=== PATIENT | female | born 1930 | race Caucasian/White ===

== ENCOUNTER 2016-09-19 17:28 | Emergency (ER) | payer MEDICARE, BC, OTHER ==
[2016-09-19] MEDS ORDERED: LABETALOL HCL 100 MG/20 ML VIAL As Ordered ONE (18:39)
--- NOTE | 2016-09-19 19:17 | REP ---
Clinical: None acute cerebral vascular infarct . Findings: Age-related atrophy and microvascular ischemic changes are appreciated. The ventricles and sulci are symmetric. Franks-white differentiation is maintained. There is no evidence for acute intracranial hemorrhage, mass/mass effect, pathology or infarction. No extra-axial fluid collection. Calvarium is intact. Paranasal sinuses and mastoid air cells are clear. Impression: Age related atrophy and microvascular ischemic changes. No acute intracranial hemorrhage, infarction, or mass/mass effect. Signed by Stan Quintero MD 09/19/2016 07:07 P
--- NOTE | 2016-09-19 19:30 | REP ---
Clinical: Acute hypertensive emergency . Comparison: 08/10/2015 . Technique: PA and lateral. Findings: The mediastinum and cardiac silhouette are normal. The lung whitten demonstrate chronic changes and without acute consolidation, effusion, or pneumothorax. The skeletal structures are intact and normal. Impression: 1. No acute cardiopulmonary process. Signed by Stan Quintero MD 09/19/2016 07:22 P
[2016-09-19 19:50] LABS: BASO % 0.5 % (0.0-1.0); EOS # 0.1 K/mm3 (0.0-0.50); EOS % 1.2 % (0.0-3.0); LARGE UNSTAINED CELL # 0.2 K/mm3 (0.0-0.4); LYMPH % 17.7 % (24.0-44.0); MEAN CORPUSCULAR HEMOGLOBIN 31.5 pg (27.0-33.0); MEAN CORPUSCULAR HGB CONC 32.7 g/dl (32.0-36.5); MEAN CORPUSCULAR VOLUME 96.5 fl (80.0-96.0); MONO # 0.2 K/mm3 (0.0-0.8); MONO % 2.9 % (0.0-5.0); NEUTROPHILS # 4.4 K/mm3 (1.8-7.7); NEUTROPHILS % 74.8 % (36.0-66.0); PLATELET COUNT, AUTOMATED 290 k/mm3 (150-450); RED CELL DISTRIBUTION WIDTH 12.4 % (11.5-14.5); WHITE BLOOD COUNT 5.8 K/mm3 (4.0-10.0)
[2016-09-19 20:14] LABS: ANION GAP 9 MEQ/L (8-16); BLOOD UREA NITROGEN 17 MG/DL (7-18); CALCIUM LEVEL 8.7 MG/DL (8.8-10.2); CARBON DIOXIDE LEVEL 27 MEQ/L (21-32); CHLORIDE LEVEL 106 MEQ/L (98-107); CREATININE FOR GFR 0.76 MG/DL (0.55-1.02); GLOMERULAR FILTRATION RATE > 60.0 (>32); GLUCOSE, FASTING 230 MG/DL (83-110); POTASSIUM SERUM 3.8 MEQ/L (3.5-5.1); SODIUM LEVEL 142 MEQ/L (136-145)
[2016-09-19] MEDS ORDERED: LABETALOL 100 MG TAB As Ordered ONE (20:57)
--- NOTE | 2016-09-19 21:14 | EDDOCDS ---
Physician Documentation [facility] Name: Leilani Trevino Age: 86 yrs Sex: Female : 1930 Arrival Date: 09/19/2016 Time: 17:28 Bed 20 Private MD: Disposition: 09/19 19:22 I have independently interviewed and examined the patient, and I agree with the br1 investigation, diagnosis and treatment plan as documented by the Resident. Disposition: 09/19/16 20:49 Discharged to Home/Self Care. Impression: Essential (primary) hypertension. - Condition is Stable. - Discharge Instructions: Hypertension, Hypertension, [id number]. - Prescriptions for labetalol 100 mg Oral tablet - take 1 tablet by ORAL route 2 times per day; 60 tablet. - Medication Reconciliation, Local Pharmacy Hours form. - Follow up: Private Physician; When: 2 - 3 days; Reason: Continuance of care. - Problem is an acute exacerbation. - Symptoms have improved. Historical: - Allergies: PENICILLINS; - Home Meds: 1. Novolog 100 unit/mL Sub-Q soln 6 units before each meal plus 2 units per 50mg/dl over 100 2. levothyroxine 50 mcg Oral cap 1 cap once daily 3. Tresiba FlexTouch U-200 200 unit/mL (3 mL) subcutaneous inpn 50 units daily 4. magnesium oxide 400 mg Oral tab 800 mg daily 5. cyanocobalamin (vit B-12) miscellaneous 1000 mcg every 2 weeks 6. Citracal + D Slow Release 600 mg calcium- 500 unit oral TbER daily 7. Aleve 220 mg Oral tab 1 tab every 12 hours 8. Sertraline 50 mg daily 9. Mavik 2 mg Oral tab 1 tab once daily 10. Centrum Silver oral tab daily 11. aspirin 81 mg Oral TbEC 1 tab once daily - PMHx: CAD; Diabetes - IDDM: uncontrolled; hyperlipidemia; Hypertension; Anxiety; SVT; onychomycosis; thoracic and lumbosacral neuritis; Hypothyroidism; - PSHx: Hysterectomy; - Social history: Smoking status: Patient states was never smoker of tobacco. No barriers to communication noted, The patient speaks fluent Occitan. - Family history: Not pertinent. - : The pt / caregiver states he / she is not on anticoagulants. Home medication list is obtained from the patient. - Exposure Risk Screening:: None identified. Vital Signs: 17:53 BP 220 / 114 (auto/); sls1 17:54 BP 220 / 114; Pulse 79; Resp 18; Temp 98.7(TE); Pulse Ox 98% on R/A; Pain 0/10; ms18 17:54 Weight 90.72 kg / 200 lbs; Height 5 ft. 4 in. (162.56 cm); ms18 17:54 Pulse 86 MON; Pulse Ox 96% ; sls1 18:08 BP 198 / 103 (auto/); sls1 18:09 Pulse 74 MON; Pulse Ox 98% ; sls1 18:23 BP 194 / 93 (auto/); sls1 18:23 Pulse 74 MON; Pulse Ox 97% ; sls1 18:38 BP 220 / 98 (auto/); sls1 18:39 Pulse 74 MON; Pulse Ox 97% ; sls1 18:53 BP 170 / 75 (auto/); sls1 18:54 Pulse 78 MON; Pulse Ox 96% ; sls1 19:08 BP 171 / 94 (auto/); sls1 19:09 Pulse 66 MON; Pulse Ox 96% ; sls1 19:47 BP 160 / 77 (auto/); sls1 19:48 Pulse 72 MON; Pulse Ox 95% ; sls1 20:02 BP 156 / 77 (auto/); sls1 20:03 Pulse 70 MON; Pulse Ox 94% ; sls1 20:17 BP 163 / 76 (auto/); sls1 20:18 Pulse 68 MON; Pulse Ox 95% ; sls1 20:32 BP 174 / 78 (auto/); sls1 20:33 Pulse 68 MON; Pulse Ox 96% ; sls1 20:47 BP 161 / 80 (auto/); sls1 20:48 Pulse 72 MON; Resp 20; Temp 97.2(T); Pulse Ox 97% on R/A; Pain 0/10; sls1 17:54 Body Mass Index 34.33 (90.72 kg, 162.56 cm) ms18 MDM: 18:32 IV Saline Lock ordered. br1 18:32 Labetalol 10 mg IVP at bolus once over 2 mins ordered. br1 18:38 Back Tufter ordered. jo4 18:38 CT Head Without Contrast Ordered. EDMS 18:39 CBC with Diff Ordered. EDMS 18:39 BMP Ordered. EDMS 18:39 Cardiac Marker Panel Ordered. EDMS 18:40 Chest, 2 View (pa\E\lat) Ordered. EDMS 19:23 ED course: Seen with resident agree with findings. Sent for uncontrolled HTN. Complains br1 of headache. Denies any numbness, weakness, slurred speech, trouble walking, or any other neurologic complaint. Neurologic exam within normal limits. NIHSS 0. Plan BP control, labs, EKG, chest XRay, CT head, re-eval. Signed out to Dr. Gutierrez at this time. Patient in agreement with plan.. 19:24 Back Tufter/Pulse Ox/q 30 min VS ordered. br1 19:25 ECG WITH READING ER PHYS+CARDIAG ordered. EDMS 20:33 CBC with Diff Reviewed. mm11 20:33 BMP Reviewed. mm11 20:33 Cardiac Marker Panel Reviewed. mm11 20:33 CT Head Without Contrast Reviewed. mm11 20:33 Chest, 2 View (pa\E\lat) Reviewed. mm11 20:49 Financial registration complete. zo 20:50 Labetalol 100 mg PO once ordered. mm11 21:12 [facility] Payment Agreement was scanned into [employer] and attached to record. zo Administered Medications: 18:47 Drug: Labetalol 10 mg [labetalol 5 mg/mL intravenous solution (2 mL)] Route: IVP; Rate: ms18 bolus; Infused Over: 2 mins; Site: left antecubital; 21:08 Drug: Labetalol 100 mg [labetalol 100 mg tablet (1 tabs)] Route: PO; sls1 Signatures: Dispatcher [employer] EDMS Clare Dolan Matthew, DO DO mm11 Genaro Eddy MD MD br1 Keke Bojorquez RN RN sls1 Paradise Steele RN RN ms18 Liz Licona DO DO jo4 The chart was reviewed and I authenticate all verbal orders and agree with the evaluation and treatment provided.Attachments: 21:12 [facility] Payment Agreement zo MTDD
--- NOTE | 2016-09-19 21:14 | EDDOCDS ---
Nurse's Notes [facility] Name: Leilani Trevino Age: 86 yrs Sex: Female : 1930 Arrival Date: 09/19/2016 Time: 17:28 Bed 20 Private MD: Diagnosis: Essential (primary) hypertension Presentation: 09/19 17:42 Presenting complaint: EMS states: that the pt is coming from Dr. Adolfo Del Real's office. ms18 Dr. Del Real believes that the pt may have had a stroke last week, he noticed a R sided facial droop and the pt is hypertensive. Adult Sepsis Screening: The patient does not have new or worsening altered mentation. Patient's respiratory rate is less than 22. Systolic blood pressure is greater than 100. Patient has a qSOFA score of 0- Negative Sepsis Screen. Suicide/Homicide risk assessment- the patient denies having any suicidal and/or homicidal ideations and does not present with any other emotional, behavioral or mental health complaints. Status: Patient is not a information services tech or dependent. Transition of care: patient was received from a primary care office; Dr. Adolfo Del Real. 17:42 Acuity: GREGORIO Level 3 ms18 17:42 Method Of Arrival: Ambulance ms18 Triage Assessment: 17:54 General: Appears in no apparent distress, comfortable, obese, Behavior is appropriate ms18 for age, cooperative, pleasant. Pain: Denies pain. Neurological: Level of Consciousness is awake, alert, obeys commands, Oriented to person, place, time. Neurological: Moves all extremities. Gait is steady, Speech is normal, Facial symmetry appears normal. Respiratory: Airway is patent Respiratory effort is even, unlabored, Respiratory pattern is regular, symmetrical. GI: Abdomen is non- distended. Derm: Skin is pink, warm & dry. Historical: - Allergies: PENICILLINS; - Home Meds: 1. Novolog 100 unit/mL Sub-Q soln 6 units before each meal plus 2 units per 50mg/dl over 100 2. levothyroxine 50 mcg Oral cap 1 cap once daily 3. Tresiba FlexTouch U-200 200 unit/mL (3 mL) subcutaneous inpn 50 units daily 4. magnesium oxide 400 mg Oral tab 800 mg daily 5. cyanocobalamin (vit B-12) miscellaneous 1000 mcg every 2 weeks 6. Citracal + D Slow Release 600 mg calcium- 500 unit oral TbER daily 7. Aleve 220 mg Oral tab 1 tab every 12 hours 8. Sertraline 50 mg daily 9. Mavik 2 mg Oral tab 1 tab once daily 10. Centrum Silver oral tab daily 11. aspirin 81 mg Oral TbEC 1 tab once daily - PMHx: CAD; Diabetes - IDDM: uncontrolled; hyperlipidemia; Hypertension; Anxiety; SVT; onychomycosis; thoracic and lumbosacral neuritis; Hypothyroidism; - PSHx: Hysterectomy; - Social history: Smoking status: Patient states was never smoker of tobacco. No barriers to communication noted, The patient speaks fluent German. - Family history: Not pertinent. - : The pt / caregiver states he / she is not on anticoagulants. Home medication list is obtained from the patient. - Exposure Risk Screening:: None identified. Screenin:25 Screening information is obtained from the patient. Fall risk: No risks identified. ms18 Assistance ADL's: requires no assistance with activities of daily living. Abuse/DV Screen: The patient / caregiver reports he/she is: not in a situation that causes fear, pain or injury. Nutritional screening: No deficits noted. Advance Directives: There is no living will. home support is adequate. Assessment: 18:25 General: Appears in no apparent distress, comfortable, obese, Behavior is appropriate ms18 for age, cooperative, pleasant. Pain: Denies pain. Neurological: Level of Consciousness is awake, alert, obeys commands, Oriented to person, place, time, Moves all extremities. Gait is steady, Speech is normal, Facial symmetry appears normal. Respiratory: No deficits noted. Airway is patent Respiratory effort is even, unlabored. GI: Abdomen is obese. Derm: Skin is pink, warm & dry. 21:09 General: Appears in no apparent distress, First encounter with pt, medicated per order, sls1 discharge instructions reviewed with pt including medication use and follow up care, verbalizes understanding of all instructions, IV d/c pt d/c home via wheelchair with family. Pain: Denies pain. Neurological: Level of Consciousness is awake, alert, Oriented to person, place, time. Cardiovascular: Chest pain is denied. Respiratory: Airway is patent Respiratory effort is even, unlabored, Respiratory pattern is regular, symmetrical. Derm: No deficits noted. Vital Signs: 17:53 BP 220 / 114 (auto/); sls1 17:54 BP 220 / 114; Pulse 79; Resp 18; Temp 98.7(TE); Pulse Ox 98% on R/A; Pain 0/10; ms18 17:54 Weight 90.72 kg; Height 5 ft. 4 in. (162.56 cm); ms18 17:54 Pulse 86 MON; Pulse Ox 96% ; sls1 18:08 BP 198 / 103 (auto/); sls1 18:09 Pulse 74 MON; Pulse Ox 98% ; sls1 18:23 BP 194 / 93 (auto/); sls1 18:23 Pulse 74 MON; Pulse Ox 97% ; sls1 18:38 BP 220 / 98 (auto/); sls1 18:39 Pulse 74 MON; Pulse Ox 97% ; sls1 18:53 BP 170 / 75 (auto/); sls1 18:54 Pulse 78 MON; Pulse Ox 96% ; sls1 19:08 BP 171 / 94 (auto/); sls1 19:09 Pulse 66 MON; Pulse Ox 96% ; sls1 19:47 BP 160 / 77 (auto/); sls1 19:48 Pulse 72 MON; Pulse Ox 95% ; sls1 20:02 BP 156 / 77 (auto/); sls1 20:03 Pulse 70 MON; Pulse Ox 94% ; sls1 20:17 BP 163 / 76 (auto/); sls1 20:18 Pulse 68 MON; Pulse Ox 95% ; sls1 20:32 BP 174 / 78 (auto/); sls1 20:33 Pulse 68 MON; Pulse Ox 96% ; sls1 20:47 BP 161 / 80 (auto/); sls1 20:48 Pulse 72 MON; Resp 20; Temp 97.2(T); Pulse Ox 97% on R/A; Pain 0/10; sls1 17:54 Body Mass Index 34.33 (90.72 kg, 162.56 cm) ms18 Vitals: 17:54 Log In Time N/A - ambulance arrival. ms18 ED Course: 17:29 Patient visited by Gabriella Singleton, Commercial Lines Sales Executive. deg 17:29 Patient moved to Waiting deg 17:36 Patient moved to 20 kcs 17:42 [facility]icon[facility] jo4 17:42 Genaro Eddy MD is Attending Physician. jo4 17:42 Patient visited by Paradise Steele RN. ms18 17:49 Triage Initiated ms18 17:54 Patient visited by Paradise Steele RN. ms18 18:25 Patient visited by Paradise Steele RN. ms18 18:25 The patient / caregiver is instructed regarding the plan of care and ED course. Patient ms18 has correct armband on for positive identification. Property :Personal belongings accompany Pt. 18:25 Maintain field IV. Site clean & dry. Gauge & site: 20g L AC. ms18 18:34 Patient visited by Liz Licona DO. jo4 18:48 Patient visited by Paradise Steele RN. ms18 18:[address] ms18 19:07 Patient visited by Genaro Eddy MD. br1 19:08 Patient moved to 20 ms18 19:27 CT Head Without Contrast Returned. EDMS 19:42 Attending Physician role handed off by Genaro Eddy MD mm11 19:42 Delano Gutierrez DO is Attending Physician. mm11 19:42 Patient visited by Delano Gutierrez DO. mm11 20:03 Chest, 2 View (pa\E\lat) Returned. EDMS 20:47 Patient visited by Delano Gutierrez DO. mm11 20:48 Discontinued lock intact, bleeding controlled, pressure dressing applied, No sls1 redness/swelling at site. 20:48 No procedures done that require assistance. sls1 21:12 [facility] Payment Agreement was scanned into [employer] and attached to record. zo Administered Medications: 18:47 Drug: Labetalol 10 mg [labetalol 5 mg/mL intravenous solution (2 mL)] Route: IVP; Rate: ms18 bolus; Infused Over: 2 mins; Site: left antecubital; 21:08 Drug: Labetalol 100 mg [labetalol 100 mg tablet (1 tabs)] Route: PO; sls1 Order Results: Lab Order: CBC with Diff; SPEC'M 09/19/16 19:37 Test: WHITE BLOOD COUNT; Value: 5.8; Range: 4.0-10.0; Units: K/mm3; Status: F Test: RED BLOOD COUNT; Value: 3.96; Range: 4.00-5.40; Abnormal: Below low normal; Units: M/mm3; Status: F Test: HEMOGLOBIN; Value: 12.5; Range: 12.0-16.0; Units: g/dl; Status: F Test: HEMATOCRIT; Value: 38.2; Range: 36.0-47.0; Units: %; Status: F Test: MEAN CORPUSCULAR VOLUME; Value: 96.5; Range: 80.0-96.0; Abnormal: Above high normal; Units: fl; Status: F Test: MEAN CORPUSCULAR HEMOGLOBIN; Value: 31.5; Range: 27.0-33.0; Units: pg; Status: F Test: MEAN CORPUSCULAR HGB CONC; Value: 32.7; Range: 32.0-36.5; Units: g/dl; Status: F Test: RED CELL DISTRIBUTION WIDTH; Value: 12.4; Range: 11.5-14.5; Units: %; Status: F Test: PLATELET COUNT, AUTOMATED; Value: 290; Range: 150-450; Units: k/mm3; Status: F Test: NEUTROPHILS %; Value: 74.8; Range: 36.0-66.0; Abnormal: Above high normal; Units: %; Status: F Test: LYMPH %; Value: 17.7; Range: 24.0-44.0; Abnormal: Below low normal; Units: %; Status: F Test: MONO %; Value: 2.9; Range: 0.0-5.0; Units: %; Status: F Test: EOS %; Value: 1.2; Range: 0.0-3.0; Units: %; Status: F Test: BASO %; Value: 0.5; Range: 0.0-1.0; Units: %; Status: F Test: LARGE UNSTAINED CELL %; Value: 3.0; Range: 0.0-4.0; Units: %; Status: F Test: NEUTROPHILS #; Value: 4.4; Range: 1.8-7.7; Units: K/mm3; Status: F Test: LYMPH #; Value: 1.0; Range: 1.5-4.5; Abnormal: Below low normal; Units: K/mm3; Status: F Test: MONO #; Value: 0.2; Range: 0.0-0.8; Units: K/mm3; Status: F Test: EOS #; Value: 0.1; Range: 0.0-0.50; Units: K/mm3; Status: F Test: BASO #; Value: 0.0; Range: 0.0-0.2; Units: K/mm3; Status: F Test: LARGE UNSTAINED CELL #; Value: 0.2; Range: 0.0-0.4; Units: K/mm3; Status: F Lab Order: BMP; SPEC'M 09/19/16 19:37 Test: GLUCOSE, FASTING; Value: 230; Range: 83-110; Abnormal: Above high normal; Units: MG/DL; Status: F Test: BLOOD UREA NITROGEN; Value: 17; Range: 7-18; Units: MG/DL; Status: F Test: CREATININE FOR GFR; Value: 0.76; Range: 0.55-1.02; Units: MG/DL; Status: F Test: GLOMERULAR FILTRATION RATE; Value: > 60.0; Range: >32; Status: F Test: SODIUM LEVEL; Value: 142; Range: 136-145; Units: MEQ/L; Status: F Test: POTASSIUM SERUM; Value: 3.8; Range: 3.5-5.1; Units: MEQ/L; Status: F Test: CHLORIDE LEVEL; Value: 106; Range: 98-107; Units: MEQ/L; Status: F Test: CARBON DIOXIDE LEVEL; Value: 27; Range: 21-32; Units: MEQ/L; Status: F Test: ANION GAP; Value: 9; Range: 8-16; Units: MEQ/L; Status: F Test: CALCIUM LEVEL; Value: 8.7; Range: 8.8-10.2; Abnormal: Below low normal; Units: MG/DL; Status: F Test Note: ; Units are mL/min/1.73 m2 Chronic Kidney Disease Staging per NKF: Stage I & II GFR >=60 Normal to Mildly Decreased Stage III GFR 30-59 Moderately Decreased Stage IV GFR 15-29 Severely Decreased Stage V GFR <15 Very Little GFR Left ESRD GFR <15 on PETAL CUTTER Lab Order: Cardiac Marker Panel; SPEC'M 09/19/16 19:37 Test: CPK CREATINE PHOSPHOKINASE; Value: 110; Range: 26-192; Units: U/L; Status: F Test: CK-MB VALUE MASS; Value: 1.0; Range: 0.0-3.6; Units: NG/ML; Status: F Test: MB/CK RELATIVE INDEX; Value: 0.90; Range: < OR =4; Status: F Test: TROPONIN I; Value: < 0.02; Range: < 0.10; Units: NG/ML; Status: F Test Note: ; DIAGNOSIS CRITERIA MMB ng/ml Relative Index (RI) NON-AMI < or = 5 N/A FRANKS ZONE > 5 < or = 4 AMI > 5 > 4 Radiology Order: CT Head Without Contrast Test: CT Head Without Contrast REASON FOR EXAMINATION: CVA >4.5hrs; Clinical: None acute cerebral vascular infarct .; ; Findings:; Age-related atrophy and microvascular ischemic changes are appreciated. The; ventricles and sulci are symmetric. Franks-white differentiation is maintained.; There is no evidence for acute intracranial hemorrhage, mass/mass effect,; pathology or infarction. No extra-axial fluid collection. Calvarium is intact.; Paranasal sinuses and mastoid air cells are clear.; ; Impression:; Age related atrophy and microvascular ischemic changes.; No acute intracranial hemorrhage, infarction, or mass/mass effect.; ; ; Signed by; Stan Quintero MD 09/19/2016 07:07 P; Radiology Order: Chest, 2 View (pa\E\lat) Test: Chest, 2 View (pa\E\lat) REASON FOR EXAMINATION: Hypertensive urgency; Clinical: Acute hypertensive emergency .; ; Comparison: 08/10/2015 .; ; Technique: PA and lateral.; ; Findings:; The mediastinum and cardiac silhouette are normal. The lung whitten demonstrate; chronic changes and without acute consolidation, effusion, or pneumothorax. The; skeletal structures are intact and normal.; ; Impression:; 1. No acute cardiopulmonary process.; ; ; Signed by; Stan Quintero MD 09/19/2016 07:22 P; Outcome: 20:48 Discharge Assessment: Patient awake, alert and oriented x 3. No cognitive and/or sls1 functional deficits noted. Patient verbalized understanding of disposition instructions. patient administered narcotics - no. The following High Risk Discharge criteria are identified: None. Discharged to home ambulatory, with family. Condition: stable. Discharge instructions given to patient, Instructed on discharge instructions, follow up and referral plans. medication usage, Demonstrated understanding of instructions, medications, Pt was receptive of discharge instructions/ teaching. Prescriptions given X 1. 20:49 Discharge ordered by Provider. mm11 21:12 CT Study completed. sls1 21:13 Patient left the ED. sls1 Signatures: Dispatcher [employer] EDMS Nita Medel, RN RN kcs Gabriella Singleton, Commercial Lines Sales Executive Unit deg Clare Dolan Matthew, DO DO mm11 Genaro Eddy MD MD br1 Keke Bojorquez RN RN sls1 Paradise Steele RN RN ms18 Liz Licona DO DO jo4 [facility]OY
--- NOTE | 2016-09-21 22:14 | EDDOCDS ---
Physician Documentation [facility] Name: Leilani Trevino Age: 86 yrs Sex: Female : 1930 Arrival Date: 09/19/2016 Time: 17:28 Bed 20 Private MD: Disposition: 09/19 19:22 I have independently interviewed and examined the patient, and I agree with the br1 investigation, diagnosis and treatment plan as documented by the Resident. Disposition: 09/19/16 20:49 Discharged to Home/Self Care. Impression: Essential (primary) hypertension. - Condition is Stable. - Discharge Instructions: Hypertension, Hypertension, [id number]. - Prescriptions for labetalol 100 mg Oral tablet - take 1 tablet by ORAL route 2 times per day; 60 tablet. - Medication Reconciliation, Local Pharmacy Hours form. - Follow up: Private Physician; When: 2 - 3 days; Reason: Continuance of care. - Problem is an acute exacerbation. - Symptoms have improved. Historical: - Allergies: PENICILLINS; - Home Meds: 1. Novolog 100 unit/mL Sub-Q soln 6 units before each meal plus 2 units per 50mg/dl over 100 2. levothyroxine 50 mcg Oral cap 1 cap once daily 3. Tresiba FlexTouch U-200 200 unit/mL (3 mL) subcutaneous inpn 50 units daily 4. magnesium oxide 400 mg Oral tab 800 mg daily 5. cyanocobalamin (vit B-12) miscellaneous 1000 mcg every 2 weeks 6. Citracal + D Slow Release 600 mg calcium- 500 unit oral TbER daily 7. Aleve 220 mg Oral tab 1 tab every 12 hours 8. Sertraline 50 mg daily 9. Mavik 2 mg Oral tab 1 tab once daily 10. Centrum Silver oral tab daily 11. aspirin 81 mg Oral TbEC 1 tab once daily - PMHx: CAD; Diabetes - IDDM: uncontrolled; hyperlipidemia; Hypertension; Anxiety; SVT; onychomycosis; thoracic and lumbosacral neuritis; Hypothyroidism; - PSHx: Hysterectomy; - Social history: Smoking status: Patient states was never smoker of tobacco. No barriers to communication noted, The patient speaks fluent Romansh. - Family history: Not pertinent. - : The pt / caregiver states he / she is not on anticoagulants. Home medication list is obtained from the patient. - Exposure Risk Screening:: None identified. Vital Signs: 17:53 BP 220 / 114 (auto/); sls1 17:54 BP 220 / 114; Pulse 79; Resp 18; Temp 98.7(TE); Pulse Ox 98% on R/A; Pain 0/10; ms18 17:54 Weight 90.72 kg / 200 lbs; Height 5 ft. 4 in. (162.56 cm); ms18 17:54 Pulse 86 MON; Pulse Ox 96% ; sls1 18:08 BP 198 / 103 (auto/); sls1 18:09 Pulse 74 MON; Pulse Ox 98% ; sls1 18:23 BP 194 / 93 (auto/); sls1 18:23 Pulse 74 MON; Pulse Ox 97% ; sls1 18:38 BP 220 / 98 (auto/); sls1 18:39 Pulse 74 MON; Pulse Ox 97% ; sls1 18:53 BP 170 / 75 (auto/); sls1 18:54 Pulse 78 MON; Pulse Ox 96% ; sls1 19:08 BP 171 / 94 (auto/); sls1 19:09 Pulse 66 MON; Pulse Ox 96% ; sls1 19:47 BP 160 / 77 (auto/); sls1 19:48 Pulse 72 MON; Pulse Ox 95% ; sls1 20:02 BP 156 / 77 (auto/); sls1 20:03 Pulse 70 MON; Pulse Ox 94% ; sls1 20:17 BP 163 / 76 (auto/); sls1 20:18 Pulse 68 MON; Pulse Ox 95% ; sls1 20:32 BP 174 / 78 (auto/); sls1 20:33 Pulse 68 MON; Pulse Ox 96% ; sls1 20:47 BP 161 / 80 (auto/); sls1 20:48 Pulse 72 MON; Resp 20; Temp 97.2(T); Pulse Ox 97% on R/A; Pain 0/10; sls1 17:54 Body Mass Index 34.33 (90.72 kg, 162.56 cm) ms18 MDM: 18:32 IV Saline Lock ordered. br1 18:32 Labetalol 10 mg IVP at bolus once over 2 mins ordered. br1 18:38 Automobile Body Repair Supervisor ordered. jo4 18:38 CT Head Without Contrast Ordered. EDMS 18:39 CBC with Diff Ordered. EDMS 18:39 BMP Ordered. EDMS 18:39 Cardiac Marker Panel Ordered. EDMS 18:40 Chest, 2 View (pa\E\lat) Ordered. EDMS 19:23 ED course: Seen with resident agree with findings. Sent for uncontrolled HTN. Complains br1 of headache. Denies any numbness, weakness, slurred speech, trouble walking, or any other neurologic complaint. Neurologic exam within normal limits. NIHSS 0. Plan BP control, labs, EKG, chest XRay, CT head, re-eval. Signed out to Dr. Gutierrez at this time. Patient in agreement with plan.. 19:24 Automobile Body Repair Supervisor/Pulse Ox/q 30 min VS ordered. br1 19:25 ECG WITH READING ER PHYS+CARDIAG ordered. EDMS 20:33 CBC with Diff Reviewed. mm11 20:33 BMP Reviewed. mm11 20:33 Cardiac Marker Panel Reviewed. mm11 20:33 CT Head Without Contrast Reviewed. mm11 20:33 Chest, 2 View (pa\E\lat) Reviewed. mm11 20:49 Financial registration complete. zo 20:50 Labetalol 100 mg PO once ordered. mm11 21:12 [facility] [place] was scanned into [employer] and attached to record. zo 09/20 03:52 T-Sheet-- Draft Copy was scanned into [employer] and attached to record. hs2 12:20 PCR was scanned into [employer] and attached to record. gb 12:20 Rhythm Strip was scanned into [employer] and attached to record. gb Administered Medications: 09/19 18:47 Drug: Labetalol 10 mg [labetalol 5 mg/mL intravenous solution (2 mL)] Route: IVP; Rate: ms18 bolus; Infused Over: 2 mins; Site: left antecubital; 21:08 Drug: Labetalol 100 mg [labetalol 100 mg tablet (1 tabs)] Route: PO; sls1 Signatures: Dispatcher [employer] EDMS Lisette [place], Reg Reg gb Clare Dolan Matthew, DO DO mm11 Genaro Eddy MD MD br1 Keke Bojorquez RN RN sls1 Paradise Steele RN RN ms18 Liz Licona, DO jo4 Queta Rodriguez, Reg Reg hs2 The chart was reviewed and I authenticate all verbal orders and agree with the evaluation and treatment provided.Attachments: 21:12 [facility] Payment Agreement zo 09/20 03:52 T-Sheet-- Draft Copy hs2 Chart Complete MTDD
--- NOTE | 2016-09-21 22:14 | EDDOCDS ---
Physician Documentation [facility] Name: Leilani Trevino Age: 86 yrs Sex: Female : 1930 Arrival Date: 09/19/2016 Time: 17:28 Bed 20 Private MD: Disposition: 09/19 19:22 I have independently interviewed and examined the patient, and I agree with the br1 investigation, diagnosis and treatment plan as documented by the Resident. Disposition: 09/19/16 20:49 Discharged to Home/Self Care. Impression: Essential (primary) hypertension. - Condition is Stable. - Discharge Instructions: Hypertension, Hypertension, [id number]. - Prescriptions for labetalol 100 mg Oral tablet - take 1 tablet by ORAL route 2 times per day; 60 tablet. - Medication Reconciliation, Local Pharmacy Hours form. - Follow up: Private Physician; When: 2 - 3 days; Reason: Continuance of care. - Problem is an acute exacerbation. - Symptoms have improved. Historical: - Allergies: PENICILLINS; - Home Meds: 1. Novolog 100 unit/mL Sub-Q soln 6 units before each meal plus 2 units per 50mg/dl over 100 2. levothyroxine 50 mcg Oral cap 1 cap once daily 3. Tresiba FlexTouch U-200 200 unit/mL (3 mL) subcutaneous inpn 50 units daily 4. magnesium oxide 400 mg Oral tab 800 mg daily 5. cyanocobalamin (vit B-12) miscellaneous 1000 mcg every 2 weeks 6. Citracal + D Slow Release 600 mg calcium- 500 unit oral TbER daily 7. Aleve 220 mg Oral tab 1 tab every 12 hours 8. Sertraline 50 mg daily 9. Mavik 2 mg Oral tab 1 tab once daily 10. Centrum Silver oral tab daily 11. aspirin 81 mg Oral TbEC 1 tab once daily - PMHx: CAD; Diabetes - IDDM: uncontrolled; hyperlipidemia; Hypertension; Anxiety; SVT; onychomycosis; thoracic and lumbosacral neuritis; Hypothyroidism; - PSHx: Hysterectomy; - Social history: Smoking status: Patient states was never smoker of tobacco. No barriers to communication noted, The patient speaks fluent Spanish. - Family history: Not pertinent. - : The pt / caregiver states he / she is not on anticoagulants. Home medication list is obtained from the patient. - Exposure Risk Screening:: None identified. Vital Signs: 17:53 BP 220 / 114 (auto/); sls1 17:54 BP 220 / 114; Pulse 79; Resp 18; Temp 98.7(TE); Pulse Ox 98% on R/A; Pain 0/10; ms18 17:54 Weight 90.72 kg / 200 lbs; Height 5 ft. 4 in. (162.56 cm); ms18 17:54 Pulse 86 MON; Pulse Ox 96% ; sls1 18:08 BP 198 / 103 (auto/); sls1 18:09 Pulse 74 MON; Pulse Ox 98% ; sls1 18:23 BP 194 / 93 (auto/); sls1 18:23 Pulse 74 MON; Pulse Ox 97% ; sls1 18:38 BP 220 / 98 (auto/); sls1 18:39 Pulse 74 MON; Pulse Ox 97% ; sls1 18:53 BP 170 / 75 (auto/); sls1 18:54 Pulse 78 MON; Pulse Ox 96% ; sls1 19:08 BP 171 / 94 (auto/); sls1 19:09 Pulse 66 MON; Pulse Ox 96% ; sls1 19:47 BP 160 / 77 (auto/); sls1 19:48 Pulse 72 MON; Pulse Ox 95% ; sls1 20:02 BP 156 / 77 (auto/); sls1 20:03 Pulse 70 MON; Pulse Ox 94% ; sls1 20:17 BP 163 / 76 (auto/); sls1 20:18 Pulse 68 MON; Pulse Ox 95% ; sls1 20:32 BP 174 / 78 (auto/); sls1 20:33 Pulse 68 MON; Pulse Ox 96% ; sls1 20:47 BP 161 / 80 (auto/); sls1 20:48 Pulse 72 MON; Resp 20; Temp 97.2(T); Pulse Ox 97% on R/A; Pain 0/10; sls1 17:54 Body Mass Index 34.33 (90.72 kg, 162.56 cm) ms18 MDM: 18:32 IV Saline Lock ordered. br1 18:32 Labetalol 10 mg IVP at bolus once over 2 mins ordered. br1 18:38 Planishing Hammer Operator ordered. jo4 18:38 CT Head Without Contrast Ordered. EDMS 18:39 CBC with Diff Ordered. EDMS 18:39 BMP Ordered. EDMS 18:39 Cardiac Marker Panel Ordered. EDMS 18:40 Chest, 2 View (pa\E\lat) Ordered. EDMS 19:23 ED course: Seen with resident agree with findings. Sent for uncontrolled HTN. Complains br1 of headache. Denies any numbness, weakness, slurred speech, trouble walking, or any other neurologic complaint. Neurologic exam within normal limits. NIHSS 0. Plan BP control, labs, EKG, chest XRay, CT head, re-eval. Signed out to Dr. Gutierrez at this time. Patient in agreement with plan.. 19:24 Planishing Hammer Operator/Pulse Ox/q 30 min VS ordered. br1 19:25 ECG WITH READING ER PHYS+CARDIAG ordered. EDMS 20:33 CBC with Diff Reviewed. mm11 20:33 BMP Reviewed. mm11 20:33 Cardiac Marker Panel Reviewed. mm11 20:33 CT Head Without Contrast Reviewed. mm11 20:33 Chest, 2 View (pa\E\lat) Reviewed. mm11 20:49 Financial registration complete. zo 20:50 Labetalol 100 mg PO once ordered. mm11 21:12 [facility] Payment Agreement was scanned into [employer] and attached to record. zo 09/20 03:52 T-Sheet-- Draft Copy was scanned into [employer] and attached to record. hs2 12:20 PCR was scanned into [employer] and attached to record. gb 12:20 Rhythm Strip was scanned into [employer] and attached to record. gb Administered Medications: 09/19 18:47 Drug: Labetalol 10 mg [labetalol 5 mg/mL intravenous solution (2 mL)] Route: IVP; Rate: ms18 bolus; Infused Over: 2 mins; Site: left antecubital; 21:08 Drug: Labetalol 100 mg [labetalol 100 mg tablet (1 tabs)] Route: PO; sls1 Signatures: Dispatcher [employer] EDMS [place], Reg Reg gb Clare Dolan Matthew, DO DO mm11 Genaro Eddy MD MD br1 Keke Bojorquez RN RN sls1 Paradise Steele RN RN ms18 Liz Licona, DO jo4 Queta Rodriguez, Reg Reg hs2 The chart was reviewed and I authenticate all verbal orders and agree with the evaluation and treatment provided.Attachments: 21:12 [facility] Payment Agreement zo 09/20 03:52 T-Sheet-- Draft Copy hs2 Chart Complete MTDD
--- NOTE | 2016-09-21 22:14 | EDDOCDS ---
Nurse's Notes [facility] Name: Leilani Trevino Age: 86 yrs Sex: Female : 1930 Arrival Date: 09/19/2016 Time: 17:28 Bed 20 Private MD: Diagnosis: Essential (primary) hypertension Presentation: 09/19 17:42 Presenting complaint: EMS states: that the pt is coming from Dr. Adolfo Del Real's office. ms18 Dr. Del Real believes that the pt may have had a stroke last week, he noticed a R sided facial droop and the pt is hypertensive. Adult Sepsis Screening: The patient does not have new or worsening altered mentation. Patient's respiratory rate is less than 22. Systolic blood pressure is greater than 100. Patient has a qSOFA score of 0- Negative Sepsis Screen. Suicide/Homicide risk assessment- the patient denies having any suicidal and/or homicidal ideations and does not present with any other emotional, behavioral or mental health complaints. 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 Transition of care: patient was received from a primary care office; Dr. Adolfo Del Real. 17:42 Acuity: GREGORIO Level 3 ms18 17:42 Method Of Arrival: Ambulance ms18 Triage Assessment: 17:54 General: Appears in no apparent distress, comfortable, obese, Behavior is appropriate ms18 for age, cooperative, pleasant. Pain: Denies pain. Neurological: Level of Consciousness is awake, alert, obeys commands, Oriented to person, place, time. Neurological: Moves all extremities. Gait is steady, Speech is normal, Facial symmetry appears normal. Respiratory: Airway is patent Respiratory effort is even, unlabored, Respiratory pattern is regular, symmetrical. GI: Abdomen is non- distended. Derm: Skin is pink, warm & dry. Historical: - Allergies: PENICILLINS; - Home Meds: 1. Novolog 100 unit/mL Sub-Q soln 6 units before each meal plus 2 units per 50mg/dl over 100 2. levothyroxine 50 mcg Oral cap 1 cap once daily 3. Tresiba FlexTouch U-200 200 unit/mL (3 mL) subcutaneous inpn 50 units daily 4. magnesium oxide 400 mg Oral tab 800 mg daily 5. cyanocobalamin (vit B-12) miscellaneous 1000 mcg every 2 weeks 6. Citracal + D Slow Release 600 mg calcium- 500 unit oral TbER daily 7. Aleve 220 mg Oral tab 1 tab every 12 hours 8. Sertraline 50 mg daily 9. Mavik 2 mg Oral tab 1 tab once daily 10. Centrum Silver oral tab daily 11. aspirin 81 mg Oral TbEC 1 tab once daily - PMHx: CAD; Diabetes - IDDM: uncontrolled; hyperlipidemia; Hypertension; Anxiety; SVT; onychomycosis; thoracic and lumbosacral neuritis; Hypothyroidism; - PSHx: Hysterectomy; - Social history: Smoking status: Patient states was never smoker of tobacco. No barriers to communication noted, The patient speaks fluent Korean. - Family history: Not pertinent. - : The pt / caregiver states he / she is not on anticoagulants. Home medication list is obtained from the patient. - Exposure Risk Screening:: None identified. Screenin:25 Screening information is obtained from the patient. Fall risk: No risks identified. ms18 Assistance ADL's: requires no assistance with activities of daily living. Abuse/DV Screen: The patient / caregiver reports he/she is: not in a situation that causes fear, pain or injury. Nutritional screening: No deficits noted. Advance Directives: There is no living will. home support is adequate. Assessment: 18:25 General: Appears in no apparent distress, comfortable, obese, Behavior is appropriate ms18 for age, cooperative, pleasant. Pain: Denies pain. Neurological: Level of Consciousness is awake, alert, obeys commands, Oriented to person, place, time, Moves all extremities. Gait is steady, Speech is normal, Facial symmetry appears normal. Respiratory: No deficits noted. Airway is patent Respiratory effort is even, unlabored. GI: Abdomen is obese. Derm: Skin is pink, warm & dry. 21:09 General: Appears in no apparent distress, First encounter with pt, medicated per order, sls1 discharge instructions reviewed with pt including medication use and follow up care, verbalizes understanding of all instructions, IV d/c pt d/c home via wheelchair with family. Pain: Denies pain. Neurological: Level of Consciousness is awake, alert, Oriented to person, place, time. Cardiovascular: Chest pain is denied. Respiratory: Airway is patent Respiratory effort is even, unlabored, Respiratory pattern is regular, symmetrical. Derm: No deficits noted. Vital Signs: 17:53 BP 220 / 114 (auto/); sls1 17:54 BP 220 / 114; Pulse 79; Resp 18; Temp 98.7(TE); Pulse Ox 98% on R/A; Pain 0/10; ms18 17:54 Weight 90.72 kg; Height 5 ft. 4 in. (162.56 cm); ms18 17:54 Pulse 86 MON; Pulse Ox 96% ; sls1 18:08 BP 198 / 103 (auto/); sls1 18:09 Pulse 74 MON; Pulse Ox 98% ; sls1 18:23 BP 194 / 93 (auto/); sls1 18:23 Pulse 74 MON; Pulse Ox 97% ; sls1 18:38 BP 220 / 98 (auto/); sls1 18:39 Pulse 74 MON; Pulse Ox 97% ; sls1 18:53 BP 170 / 75 (auto/); sls1 18:54 Pulse 78 MON; Pulse Ox 96% ; sls1 19:08 BP 171 / 94 (auto/); sls1 19:09 Pulse 66 MON; Pulse Ox 96% ; sls1 19:47 BP 160 / 77 (auto/); sls1 19:48 Pulse 72 MON; Pulse Ox 95% ; sls1 20:02 BP 156 / 77 (auto/); sls1 20:03 Pulse 70 MON; Pulse Ox 94% ; sls1 20:17 BP 163 / 76 (auto/); sls1 20:18 Pulse 68 MON; Pulse Ox 95% ; sls1 20:32 BP 174 / 78 (auto/); sls1 20:33 Pulse 68 MON; Pulse Ox 96% ; sls1 20:47 BP 161 / 80 (auto/); sls1 20:48 Pulse 72 MON; Resp 20; Temp 97.2(T); Pulse Ox 97% on R/A; Pain 0/10; sls1 17:54 Body Mass Index 34.33 (90.72 kg, 162.56 cm) ms18 Vitals: 17:54 Log In Time N/A - ambulance arrival. ms18 ED Course: 17:29 Patient visited by Gabriella Singleton, Cutting Machine Operator. deg 17:29 Patient moved to Waiting deg 17:36 Patient moved to 20 kcs 17:42 [facility]icon[facility]. jo4 17:42 Genaro Eddy MD is Attending Physician. jo4 17:42 Patient visited by Paradise Steele RN. ms18 17:49 Triage Initiated ms18 17:54 Patient visited by Paradise Steele RN. ms18 18:25 Patient visited by Paradise Steele RN. ms18 18:25 The patient / caregiver is instructed regarding the plan of care and ED course. Patient ms18 has correct armband on for positive identification. Property :Personal belongings accompany Pt. 18:25 Maintain field IV. Site clean & dry. Gauge & site: 20g L AC. ms18 18:34 Patient visited by Liz Licona DO. jo4 18:48 Patient visited by Paradise Steele RN. ms18 18:[address] ms18 19:07 Patient visited by Genaro Eddy MD. br1 19:08 Patient moved to 20 ms18 19:27 CT Head Without Contrast Returned. EDMS 19:42 Attending Physician role handed off by Genaro Eddy MD mm11 19:42 Delano Gutierrez DO is Attending Physician. mm11 19:42 Patient visited by Delano Gutierrez DO. mm11 20:03 Chest, 2 View (pa\E\lat) Returned. EDMS 20:47 Patient visited by Delano Gutierrez DO. mm11 20:48 Discontinued lock intact, bleeding controlled, pressure dressing applied, No sls1 redness/swelling at site. 20:48 No procedures done that require assistance. sls1 21:12 [facility] [place] was scanned into [employer] and attached to record. zo 09/20 03:52 T-Sheet-- Draft Copy was scanned into [employer] and attached to record. hs2 12:20 PCR was scanned into [employer] and attached to record. gb 12:20 Rhythm Strip was scanned into [employer] and attached to record. gb Administered Medications: 09/19 18:47 Drug: Labetalol 10 mg [labetalol 5 mg/mL intravenous solution (2 mL)] Route: IVP; Rate: ms18 bolus; Infused Over: 2 mins; Site: left antecubital; 21:08 Drug: Labetalol 100 mg [labetalol 100 mg tablet (1 tabs)] Route: PO; sls1 Attachments: 12:20 Rhythm Strip gb Order Results: Lab Order: CBC with Diff; SPEC'M 09/19/16 19:37 Test: WHITE BLOOD COUNT; Value: 5.8; Range: 4.0-10.0; Units: K/mm3; Status: F Test: RED BLOOD COUNT; Value: 3.96; Range: 4.00-5.40; Abnormal: Below low normal; Units: M/mm3; Status: F Test: HEMOGLOBIN; Value: 12.5; Range: 12.0-16.0; Units: g/dl; Status: F Test: HEMATOCRIT; Value: 38.2; Range: 36.0-47.0; Units: %; Status: F Test: MEAN CORPUSCULAR VOLUME; Value: 96.5; Range: 80.0-96.0; Abnormal: Above high normal; Units: fl; Status: F Test: MEAN CORPUSCULAR HEMOGLOBIN; Value: 31.5; Range: 27.0-33.0; Units: pg; Status: F Test: MEAN CORPUSCULAR HGB CONC; Value: 32.7; Range: 32.0-36.5; Units: g/dl; Status: F Test: RED CELL DISTRIBUTION WIDTH; Value: 12.4; Range: 11.5-14.5; Units: %; Status: F Test: PLATELET COUNT, AUTOMATED; Value: 290; Range: 150-450; Units: k/mm3; Status: F Test: NEUTROPHILS %; Value: 74.8; Range: 36.0-66.0; Abnormal: Above high normal; Units: %; Status: F Test: LYMPH %; Value: 17.7; Range: 24.0-44.0; Abnormal: Below low normal; Units: %; Status: F Test: MONO %; Value: 2.9; Range: 0.0-5.0; Units: %; Status: F Test: EOS %; Value: 1.2; Range: 0.0-3.0; Units: %; Status: F Test: BASO %; Value: 0.5; Range: 0.0-1.0; Units: %; Status: F Test: LARGE UNSTAINED CELL %; Value: 3.0; Range: 0.0-4.0; Units: %; Status: F Test: NEUTROPHILS #; Value: 4.4; Range: 1.8-7.7; Units: K/mm3; Status: F Test: LYMPH #; Value: 1.0; Range: 1.5-4.5; Abnormal: Below low normal; Units: K/mm3; Status: F Test: MONO #; Value: 0.2; Range: 0.0-0.8; Units: K/mm3; Status: F Test: EOS #; Value: 0.1; Range: 0.0-0.50; Units: K/mm3; Status: F Test: BASO #; Value: 0.0; Range: 0.0-0.2; Units: K/mm3; Status: F Test: LARGE UNSTAINED CELL #; Value: 0.2; Range: 0.0-0.4; Units: K/mm3; Status: F Lab Order: [facility]; SPEC'M 09/19/16 19:37 Test: GLUCOSE, FASTING; Value: 230; Range: 83-110; Abnormal: Above high normal; Units: MG/DL; Status: F Test: BLOOD UREA NITROGEN; Value: 17; Range: 7-18; Units: MG/DL; Status: F Test: CREATININE FOR GFR; Value: 0.76; Range: 0.55-1.02; Units: MG/DL; Status: F Test: GLOMERULAR FILTRATION RATE; Value: > 60.0; Range: >32; Status: F Test: SODIUM LEVEL; Value: 142; Range: 136-145; Units: MEQ/L; Status: F Test: POTASSIUM SERUM; Value: 3.8; Range: 3.5-5.1; Units: MEQ/L; Status: F Test: CHLORIDE LEVEL; Value: 106; Range: 98-107; Units: MEQ/L; Status: F Test: CARBON DIOXIDE LEVEL; Value: 27; Range: 21-32; Units: MEQ/L; Status: F Test: ANION GAP; Value: 9; Range: 8-16; Units: MEQ/L; Status: F Test: CALCIUM LEVEL; Value: 8.7; Range: 8.8-10.2; Abnormal: Below low normal; Units: MG/DL; Status: F Test Note: ; Units are mL/min/1.73 m2 Chronic Kidney Disease Staging per NKF: Stage I & II GFR >=60 Normal to Mildly Decreased Stage III GFR 30-59 Moderately Decreased Stage IV GFR 15-29 Severely Decreased Stage V GFR <15 Very Little GFR Left ESRD GFR <15 on BRANCH DIRECTOR Lab Order: Cardiac Marker Panel; SPEC'M 09/19/16 19:37 Test: CPK CREATINE PHOSPHOKINASE; Value: 110; Range: 26-192; Units: U/L; Status: F Test: CK-MB VALUE MASS; Value: 1.0; Range: 0.0-3.6; Units: NG/ML; Status: F Test: MB/CK RELATIVE INDEX; Value: 0.90; Range: < OR =4; Status: F Test: TROPONIN I; Value: < 0.02; Range: < 0.10; Units: NG/ML; Status: F Test Note: ; DIAGNOSIS CRITERIA MMB ng/ml Relative Index (RI) NON-AMI < or = 5 N/A FRANKS ZONE > 5 < or = 4 AMI > 5 > 4 Radiology Order: CT Head Without Contrast Test: CT Head Without Contrast REASON FOR EXAMINATION: CVA >4.5hrs; Clinical: None acute cerebral vascular infarct .; ; Findings:; Age-related atrophy and microvascular ischemic changes are appreciated. The; ventricles and sulci are symmetric. Franks-white differentiation is maintained.; There is no evidence for acute intracranial hemorrhage, mass/mass effect,; pathology or infarction. No extra-axial fluid collection. Calvarium is intact.; Paranasal sinuses and mastoid air cells are clear.; ; Impression:; Age related atrophy and microvascular ischemic changes.; No acute intracranial hemorrhage, infarction, or mass/mass effect.; ; ; Signed by; Stan Quintero MD 09/19/2016 07:07 P; Radiology Order: Chest, 2 View (pa\E\lat) Test: Chest, 2 View (pa\E\lat) REASON FOR EXAMINATION: Hypertensive urgency; Clinical: Acute hypertensive emergency .; ; Comparison: 08/10/2015 .; ; Technique: PA and lateral.; ; Findings:; The mediastinum and cardiac silhouette are normal. The lung whitten demonstrate; chronic changes and without acute consolidation, effusion, or pneumothorax. The; skeletal structures are intact and normal.; ; Impression:; 1. No acute cardiopulmonary process.; ; ; Signed by; Stan Quintero MD 09/19/2016 07:22 P; Outcome: 09/19 20:48 Discharge Assessment: Patient awake, alert and oriented x 3. No cognitive and/or sls1 functional deficits noted. Patient verbalized understanding of disposition instructions. patient administered narcotics - no. The following High Risk Discharge criteria are identified: None. Discharged to home ambulatory, with family. Condition: stable. Discharge instructions given to patient, Instructed on discharge instructions, follow up and referral plans. medication usage, Demonstrated understanding of instructions, medications, Pt was receptive of discharge instructions/ teaching. Prescriptions given X 1. 20:49 Discharge ordered by Provider. mm11 21:12 CT Study completed. sls1 21:13 Patient left the ED. sls1 Signatures: Dispatcher [employer] EDMS Nita Medel, RN RN kcs Gabriella Singleton, Cutting Machine Operator Unit deg [place]ette [place], Reg Reg gb Clare Dolan Matthew, DO DO mm11 Genaro Eddy MD MD br1 Keke Bojorquez RN RN sls1 Paradise Steele RN RN ms18 Liz Licona, DO DO jo4 Queta Rodriguez, Reg Reg hs2 Chart Complete MTDD
== END 2016-09-19 21:13 | disposition home or self-care (01) ==
LOC: M ED 17:28
DX: I10 Essential (primary) hypertension (principal); I25.10 Atherosclerotic heart disease of native coronary artery without angina pectoris; E11.9 Type 2 diabetes mellitus without complications; E78.5 Hyperlipidemia, unspecified; F41.9 Anxiety disorder, unspecified; E03.9 Hypothyroidism, unspecified; M54.15 Radiculopathy, thoracolumbar region; Z90.79 Acquired absence of other genital organ(s); Z79.82 Long term (current) use of aspirin; Z79.4 Long term (current) use of insulin; Z79.1 Long term (current) use of non-steroidal anti-inflammatories (NSAID); Z79.899 Other long term (current) drug therapy; Z88.0 Allergy status to penicillin

== ENCOUNTER → 2016-09-27 | Outpatient (CLI) | payer MEDICARE, BC, OTHER ==
--- NOTE | 2016-09-27 15:04 | REP ---
MR BRAIN WITHOUT CONTRAST: HISTORY: Altered mental status. COMPARISON: 08/15/2012. Areas of increased signal intensity on T2-weighted images are present in the periventricular and subcortical white matter. These represent small vessel ischemic disease. There is no intraparenchymal hemorrhage, infarct, mass or midline shift. A 6 mm pineal cyst is present. The ventricular system and cortical sulci are dilated consistent with mild volume loss. There is no extracerebral collection. The sinuses are clear. IMPRESSION: 1. Small vessel ischemic disease. 2. Mild volume loss. Signed by Emiliano Hernandez MD 09/27/2016 03:08 P
== END ==
LOC: M RAD 13:18
PROVIDERS: ATTEND Family Medicine
DX: I67.89 Other cerebrovascular disease (principal); R41.82 Altered mental status, unspecified

== ENCOUNTER → 2016-12-28 | Outpatient (CLI) | payer MEDICARE, BC, OTHER ==
[2016-12-28 19:08] LABS: BASO % 0.6 % (0.0-1.0); EOS # 0.3 K/mm3 (0.0-0.50); EOS % 5.1 % (0.0-3.0); LARGE UNSTAINED CELL # 0.2 K/mm3 (0.0-0.4); LARGE UNSTAINED CELL % 3.9 % (0.0-4.0); LYMPH # 1.4 K/mm3 (1.5-4.5); LYMPH % 22.2 % (24.0-44.0); MEAN CORPUSCULAR HEMOGLOBIN 31.5 pg (27.0-33.0); MEAN CORPUSCULAR HGB CONC 32.9 g/dl (32.0-36.5); MEAN CORPUSCULAR VOLUME 95.6 fl (80.0-96.0); MONO # 0.3 K/mm3 (0.0-0.8); MONO % 4.8 % (0.0-5.0); NEUTROPHILS # 3.4 K/mm3 (1.8-7.7); NEUTROPHILS % 63.4 % (36.0-66.0); PLATELET COUNT, AUTOMATED 240 k/mm3 (150-450); RED CELL DISTRIBUTION WIDTH 12.8 % (11.5-14.5); WHITE BLOOD COUNT 5.4 K/mm3 (4.0-10.0)
[2016-12-28 19:29] LABS: ANION GAP 6 MEQ/L (8-16); BLOOD UREA NITROGEN 15 MG/DL (7-18); CALCIUM LEVEL 8.9 MG/DL (8.8-10.2); CARBON DIOXIDE LEVEL 30 MEQ/L (21-32); CHLORIDE LEVEL 105 MEQ/L (98-107); CREATININE FOR GFR 0.87 MG/DL (0.55-1.02); GLOMERULAR FILTRATION RATE > 60.0 (>32); GLUCOSE, FASTING 210 MG/DL (83-110); POTASSIUM SERUM 4.6 MEQ/L (3.5-5.1); SODIUM LEVEL 141 MEQ/L (136-145)
== END ==
LOC: M ADAMS 14:59
PROVIDERS: ATTEND Physician Assistant
DX: R53.83 Other fatigue (principal)

== ENCOUNTER → 2018-01-12 | Outpatient (REF) | payer MEDICARE, OTHER ==
[2018-01-12 19:20] LABS: HEMATOCRIT 38.4 % (36.0-47.0); HEMOGLOBIN 12.8 g/dl (12.0-15.5); MEAN CORPUSCULAR HEMOGLOBIN 32.1 pg (27.0-33.0); MEAN CORPUSCULAR HGB CONC 33.3 g/dl (32.0-36.5); MEAN CORPUSCULAR VOLUME 96.2 fl (80.0-96.0); PLATELET COUNT, AUTOMATED 249 10^3/uL (150-450); RED BLOOD COUNT 3.99 10^6/uL (4.00-5.40); RED CELL DISTRIBUTION WIDTH 13.3 % (11.5-14.5); WHITE BLOOD COUNT 7.5 10^3/uL (4.0-10.0)
[2018-01-12 19:25] LABS: APPEARANCE, URINE CLEAR (CLEAR); BACTERIA, URINE AUTO NEGATIVE (NEGATIVE); BILIRUBIN, URINE AUTO NEGATIVE (NEGATIVE); BLOOD, URINE BLOOD NEGATIVE (NEGATIVE); COLOR, URINE YELLOW (YELLOW); GLUCOSE, URINE (UA) AUTO 3+ mg/dL (NEGATIVE); KETONE, URINE AUTO NEGATIVE (NEGATIVE); LEUKOCYTE ESTERASE, URINE AUTO NEGATIVE (NEGATIVE); MUCUS, URINE SMALL (NEGATIVE); NITRITE, URINE AUTO NEGATIVE (NEGATIVE); PROTEIN, URINE AUTO NEGATIVE (NEGATIVE); RBC, URINE AUTO 2 /HPF (0-3); SPECIFIC GRAVITY URINE AUTO 1.027 (1.002-1.035); SQUAMOUS EPITHELIAL CELL UR AU 0 /HPF (0-6); UROBILINOGEN, URINE AUTO 0.2 mg/dL (0.0-2.0); WBC, URINE AUTO 2 /HPF (0-3)
[2018-01-12 19:41] LABS: TOTAL 25(OH) VITAMIN D 28.3 NG/ML (30.0-100.0)
[2018-01-12 19:42] LABS: ESTIMATED AVERAGE GLUCOSE 180 MG/DL (60-110); HEMOGLOBIN A1c 7.9 %
[2018-01-12 19:50] LABS: ALBUMIN 3.2 GM/DL (3.2-5.2); ALBUMIN/GLOBULIN RATIO 0.84 (1.00-1.93); ALKALINE PHOSPHATASE 96 U/L (45-117); ALT/SGPT 16 U/L (12-78); ANION GAP 10 MEQ/L (8-16); AST/SGOT 13 U/L (7-37); BILIRUBIN,TOTAL 0.3 MG/DL (0.2-1.0); BLOOD UREA NITROGEN 17 MG/DL (7-18); CALCIUM LEVEL 8.6 MG/DL (8.8-10.2); CARBON DIOXIDE LEVEL 25 MEQ/L (21-32); CHLORIDE LEVEL 103 MEQ/L (98-107); FREE T4 0.96 NG/DL (0.76-1.46); GLOMERULAR FILTRATION RATE > 60.0 (>32); GLUCOSE, FASTING 295 MG/DL (70-100); POTASSIUM SERUM 4.3 MEQ/L (3.5-5.1); SODIUM LEVEL 138 MEQ/L (136-145)
== END ==
LOC: M SFHCADAM 15:03
DX: E11.65 Type 2 diabetes mellitus with hyperglycemia (principal); I10 Essential (primary) hypertension; E03.9 Hypothyroidism, unspecified; R10.31 Right lower quadrant pain; Z79.899 Other long term (current) drug therapy; Z79.4 Long term (current) use of insulin
CPT/HCPCS: 84443

== ENCOUNTER → 2018-04-05 | Outpatient (REF) | payer MEDICARE, OTHER ==
[2018-04-05 13:23] LABS: HEMATOCRIT 41.2 % (36.0-47.0); HEMOGLOBIN 13.7 g/dl (12.0-15.5); MEAN CORPUSCULAR HEMOGLOBIN 32.3 pg (27.0-33.0); MEAN CORPUSCULAR HGB CONC 33.3 g/dl (32.0-36.5); MEAN CORPUSCULAR VOLUME 97.2 fl (80.0-96.0); PLATELET COUNT, AUTOMATED 254 10^3/uL (150-450); RED BLOOD COUNT 4.24 10^6/uL (4.00-5.40); RED CELL DISTRIBUTION WIDTH 13.5 % (11.5-14.5); WHITE BLOOD COUNT 6.8 10^3/uL (4.0-10.0)
[2018-04-05 13:42] LABS: ANION GAP 7 MEQ/L (8-16); BLOOD UREA NITROGEN 16 MG/DL (7-18); CALCIUM LEVEL 9.2 MG/DL (8.8-10.2); CARBON DIOXIDE LEVEL 29 MEQ/L (21-32); CHLORIDE LEVEL 106 MEQ/L (98-107); CREATININE FOR GFR 0.88 MG/DL (0.55-1.30); GLOMERULAR FILTRATION RATE > 60.0 (>32); GLUCOSE, FASTING 185 MG/DL (70-100); SODIUM LEVEL 142 MEQ/L (136-145)
[2018-04-05 13:47] LABS: POTASSIUM SERUM 5.2 MEQ/L (3.5-5.1)
[2018-04-05 15:00] LABS: ESTIMATED AVERAGE GLUCOSE 186 MG/DL (60-110); HEMOGLOBIN A1c 8.1 %
== END ==
LOC: M SFHCADAM 11:34
DX: E11.65 Type 2 diabetes mellitus with hyperglycemia (principal); I10 Essential (primary) hypertension
CPT/HCPCS: 83036

== ENCOUNTER → 2018-04-17 | Outpatient (REF) | payer MEDICARE, OTHER ==
[2018-04-17 11:27] LABS: HEMATOCRIT 41.5 % (36.0-47.0); HEMOGLOBIN 13.5 g/dl (12.0-15.5); MEAN CORPUSCULAR HGB CONC 32.5 g/dl (32.0-36.5); MEAN CORPUSCULAR VOLUME 98.3 fl (80.0-96.0); PLATELET COUNT, AUTOMATED 266 10^3/uL (150-450); RED BLOOD COUNT 4.22 10^6/uL (4.00-5.40); RED CELL DISTRIBUTION WIDTH 13.4 % (11.5-14.5); WHITE BLOOD COUNT 6.3 10^3/uL (4.0-10.0)
[2018-04-17 11:51] LABS: ANION GAP 8 MEQ/L (8-16); BLOOD UREA NITROGEN 12 MG/DL (7-18); CALCIUM LEVEL 8.6 MG/DL (8.8-10.2); CARBON DIOXIDE LEVEL 26 MEQ/L (21-32); CHLORIDE LEVEL 107 MEQ/L (98-107); CREATININE FOR GFR 0.77 MG/DL (0.55-1.30); GLOMERULAR FILTRATION RATE > 60.0 (>32); GLUCOSE, FASTING 117 MG/DL (70-100); POTASSIUM SERUM 4.4 MEQ/L (3.5-5.1); SODIUM LEVEL 141 MEQ/L (136-145)
== END ==
DX: E11.65 Type 2 diabetes mellitus with hyperglycemia (principal); I10 Essential (primary) hypertension
CPT/HCPCS: 80048

== ENCOUNTER 2018-09-18 13:53 | Inpatient (IN) | payer MEDICARE, BC, OTHER ==
[~2018-09-18] VITALS: Ht 162.6 cm; Wt 96.0 kg
[2018-09-18 14:29] LABS: BASO % 0.5 % (0.0-1.0); EOS # 0.2 10^3/uL (0.0-0.50); EOS % 2.4 % (0.0-3.0); HEMATOCRIT 38.6 % (36.0-47.0); HEMOGLOBIN 13.1 g/dl (12.0-15.5); LYMPH # 1.1 10^3/uL (1.5-4.5); LYMPH % 14.2 % (24.0-44.0); MEAN CORPUSCULAR HEMOGLOBIN 32.3 pg (27.0-33.0); MEAN CORPUSCULAR HGB CONC 33.9 g/dl (32.0-36.5); MEAN CORPUSCULAR VOLUME 95.3 fl (80.0-96.0); MONO # 0.6 10^3/uL (0.0-0.8); MONO % 7.6 % (0.0-5.0); NEUTROPHILS % 75.1 % (36.0-66.0); PLATELET COUNT, AUTOMATED 256 10^3/uL (150-450); RED BLOOD COUNT 4.05 10^6/uL (4.00-5.40)
[2018-09-18] MEDS ORDERED: METOPROLOL TART 25 MG TABLET PO ONE (14:30)
[2018-09-18] MEDS ORDERED: TRES1INJ2 SC (14:40)
[2018-09-18] MEDS ORDERED: SERT-138 PO (14:40)
[2018-09-18] MEDS ORDERED: VITA2000 PO (14:40)
[2018-09-18] MEDS ORDERED: ACET-683 PO (14:40)
[2018-09-18] MEDS ORDERED: FLUTISP NARES (14:40)
[2018-09-18] MEDS ORDERED: MAGO400T PO (14:40)
[2018-09-18] MEDS ORDERED: TRAN1TAB48 PO (14:40)
[2018-09-18] MEDS ORDERED: LEVO50TA5 PO (14:40)
[2018-09-18] MEDS ORDERED: CARV3.12 PO (14:40)
[2018-09-18] MEDS ORDERED: MILK120011 PO (14:40)
[2018-09-18] MEDS ORDERED: NOVOINJ3 SC (14:40)
[2018-09-18] MEDS ORDERED: ASPI1TAB15 PO (14:40)
[2018-09-18] MEDS ORDERED: NAPR220C PO (14:40)
[2018-09-18 14:41] LABS: INR 1.01; PARTIAL THROMBOPLASTIN TIME 26.6 SECONDS (25.4-37.6); PROTHROMBIN TIME 13.4 SECONDS (12.1-14.4)
--- NOTE | 2018-09-18 14:56 | REP ---
CT Head without contrast HISTORY: Infarction COMPARISON: 09/19/2016 Areas of decreased attenuation are present in the periventricular white matter. This represents small-vessel ischemic disease. There is no intraparenchymal hemorrhage, acute infarct, mass or midline shift. The ventricular system the ventricular system and cortical sulci as well as subarachnoid space in the posterior fossa are dilated consistent with mild volume loss. There is no extra cerebral collection. There is no fracture. The visualized sinuses are clear. IMPRESSION: 1. Small vessel ischemic disease. 2. Mild volume loss. Electronically Signed by Emiliano Hernandez MD 09/18/2018 02:47 P
--- NOTE | 2018-09-18 15:01 | REP ---
Chest one-view HISTORY: Infarction Comparison: 09/19/2016 Linear density is present in the left lower lobe consistent with scar. The right lung is clear. The heart is normal in size. The pulmonary vasculature is normal in appearance. Impression: No acute disease. Electronically Signed by Emiliano Hernandez MD 09/18/2018 02:52 P
[2018-09-18] MEDS: METOPROLOL 5 MG/5 ML VIAL IV SCH ×3 (15:02→17:46)
[2018-09-18 15:09] LABS: BLOOD UREA NITROGEN 15 MG/DL (7-18); CALCIUM LEVEL 8.5 MG/DL (8.8-10.2); CARBON DIOXIDE LEVEL 23 MEQ/L (21-32); CHLORIDE LEVEL 105 MEQ/L (98-107); CPK CREATINE PHOSPHOKINASE 82 U/L (26-192); CREATININE FOR GFR 0.88 MG/DL (0.55-1.30); GLOMERULAR FILTRATION RATE > 60.0 (>32); GLUCOSE, FASTING 233 MG/DL (70-100); MB/CK RELATIVE INDEX 1.46 (< OR =4); POTASSIUM SERUM 4.2 MEQ/L (3.5-5.1); SODIUM LEVEL 137 MEQ/L (136-145); TROPONIN I < 0.02 NG/ML (< 0.10)
[2018-09-18] MEDS ORDERED: FLUTICASONE PROP 0.05% NASAL SPRAY 16 GM (FLONASE) NARES PRN (17:15)
[2018-09-18] MEDS ORDERED: DEXTROSE 50% 50 ML SYRINGE IV PRN (17:15)
[2018-09-18] MEDS ORDERED: GLUCOSE 4 GM CHEW TABLET PO PRN (17:15)
[2018-09-18] MEDS ORDERED: ACETAMINOPHEN 500 MG TAB PO PRN (17:15)
[2018-09-18] MEDS ORDERED: GLUCAGON FOR INJ 1 MG VIAL (J1610) SC PRN (17:15)
[2018-09-18] MEDS ORDERED: MOM 30ML SUSPENSION UDC PO PRN (17:15)
[2018-09-18] MEDS: HumaLOG INSULIN (NovoLOG) PER UNIT SC SCH (18:00)
[2018-09-18] MEDS: METOPROLOL TART 25 MG TABLET PO SCH ×2 (18:00→23:45)
--- NOTE | 2018-09-18 18:43 | ECGEPIP ---
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
[2018-09-18 18:51] LABS: CHOLESTEROL RISK RATIO 7.242 (<5)
--- NOTE | 2018-09-18 19:46 | HPEPDOC ---
General Date of Admission Sep 18, 2018 at 17:20 Primary Care Physician: PANKAJ ANDREW PA-C Attending Physician: GRACE YODER MD Chief Complaint The patient is a 88-year-old female admitted with a reason for visit of A Fib W/Rvr; Tia. Source: Patient, RN notes reviewed, Old records Exam Limitations: No limitations History of Present Illness Mrs. Trevino is an 88-year-old female is brought to [facility]'s emergency Department with expressive aphasia. Past medical history significant for hypothyroidism, diabetes mellitus, hypertension, depression, constipation, and allergies. Patient is a resident of assisted living facility and states that approximately around lunchtime she is attempting to explain something to another individual and was unable to get the words out. EMS was summoned and noted that patient did appear to have some left-sided weakness although patient herself at time of evaluation does not report any lateralizing weakness. EMS also reported new onset atrial fibrillation with rapid ventricular response. Patient states that this has never happened before. She denies any facial asymmetry, urinary or fecal incontinence, chest pain or palpitations, lightheadedness, dizziness, or headache. Emergency department evaluation reveals tachycardia with hypertension urgency. Labs reveal some elevation in her glucose at 283. Head CT and chest x-ray negative. EKG reveals atrial fibrillation. Emergency department patient to neurology who recommended brain MRI imaging prior to initiation of anticoagulation for atrial fibrillation. Hospitalist service was consulted and patient was admitted for medical management. Home Medications Scheduled (Tresiba Flextouch) 100 Unit/Ml Inj, 64 UNIT SC DAILY, (Reported) Aspirin (Aspirin) 81 Mg Tab, 81 MG PO DAILY, (Reported) Carvedilol (Carvedilol) 3.125 Mg Tab, 6.25 MG PO BID, (Reported) Cholecalciferol (Vitamin D3) 2,000 Unit Cap, 2,000 UNIT PO DAILY, (Reported) Insulin Aspart (Novolog Flexpen) 100 Unit/Ml Inj, 4 UNITS SC WM, (Reported) 0730, 1130, 1630 PLUS 2UNITS PER 50MG/DL OVER 100 Levothyroxine Sodium (Synthroid) 50 Mcg Tab, 50 MCG PO DAILY, (Reported) Magnesium Oxide (Magox 400) 241.3 Mg Tab, 800 MG PO DAILY, (Reported) Sertraline HCl (Sertraline HCl) 100 Mg Tab, 100 MG PO QHS, (Reported) Trandolapril (Trandolapril) 2 Mg Tab, 2 MG PO DAILY, (Reported) Scheduled PRN (Naproxen Sodium) 220 Mg Cap, 220 MG PO BID PRN for PAIN, (Reported) Acetaminophen (Acetaminophen Extra Stren) 500 Mg Tab, 1,000 MG PO TID PRN for PAIN, (Reported) Fluticasone Propionate (Fluticasone Propionate) 50 Mcg/Act Spr, 2 SPRAY NARES DAILY PRN for NASAL CONGESTION, (Reported) Milk Of Magnesia (Milk of Magnesia) 1,200 Mg/15 Ml Lauren, 10 ML PO DAILY PRN for CONSTIPATION, (Reported) Allergies Coded Allergies: Penicillins (Verified Allergy, Severe, SWELLING, 12/16/12) Penicillins Cross Reactors (Verified Allergy, Severe, SWELLING, 12/16/12) Past Medical History Medical History 1. Diabetes mellitus 2. Hypothyroidism 3. Hypertension 4. Depression 5. Constipation 6. Allergies Surgical History 1. Total hip arthroplasty, right 2. Hysterectomy Family History Father: in his 70s from suicide. Mother is in his 60s from kidney cancer. Patient states that she had 2 brothers and 2 sisters. One brother is in his 60s from a myocardial infarction. Another brother is at 2 years old from heart problems. One sister is in his 60s from heart disease. Her other sisters in his 60s from unknown causes. She does recall that the sister does have a history of TB. Social History Patient lives in assisted living facility. She is a total of 10 children. One of her sons is secondary to complications from alcohol dependence. Refer other children are alive and healthy. Patient has been twice. Her first marriage lasted for 28 years. His second marriage lasted for 12 years until her 's passing. 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 Has never used tobacco products. Has never consumed alcohol. Denies illicit drug use. Review of Systems Constitutional: Reports: Other (admits to hot flashes); Denies: Chills, Fever, Night Sweats, Weakness, Fatigue Eyes: Denies: Vision change ENT: Denies: Head Aches, Dysphagia, Sinus Congestion, Post Nasal Drip, Sore Throat, Epistaxis Skin: Denies: Rash, Lesions, Jaundice, Bruising Pulmonary: Denies: Dyspnea, Cough, Pleuritic Chest Pain Cardiovascular: Denies: Chest Pain, Palpitations, Orthopnea, Paroxysmal Noc. Dyspnea, Edema, Lt Headedness Gastrointestinal: Denies: Nausea, Vomiting, Abdominal Pain, Diarrhea, Constipation, Melena, Hematochezia Genitourinary: Denies: Dysuria, Frequency, Incontinence, Hematuria Hematologic: Denies: Bruising, Bleeding Excessively Endocrine: Denies: Polydipsia, Polyphagia Musculoskeletal: Denies: Neck Pain, Back Pain, Joint Pain, Muscle Pain Neurological: Denies: Weakness, Numbness Physical Examination General Exam: Positive: Alert, Cooperative, No Acute Distress Eye Exam: Positive: PERRLA, Conjunctiva & lids normal, EOMI, Sclera icteric; Negative: Ptosis ENT Exam: Positive: Atraumatic, Mucous membr. moist/pink, Pharynx Normal, Tongue Midline, Nares Patent; Negative: Pharyngeal Edema Neck Exam: Positive: Supple, +2 carotid pulse wo bruit; Negative: thyromegaly, Lymphadenopathy Chest Exam: Positive: Clear to auscultation, Normal air movement; Negative: Rales, Rhonchi, Wheezing, Diminished Heart Exam: Positive: Tachycardic, Irregular Rhythm; Negative: Normal S1, Normal S2, Gallops, Murmurs, Rubs Telemetry: Positive: Atrial fibrillation, Other Telemetry: (with rapid ventricular response) Abdomen Exam: Positive: Normal bowel sounds, Soft; Negative: Tenderness, Hepatospenomegaly, Mass, Hernia Extremity Exam: Negative: Clubbing, Cyanosis, Edema, Normal pulses (atrial fibrillation with rapid ventricular response), Tenderness, Swelling Skin Exam: Negative: Rash, Breakdown, Lesion Neuro Exam: Positive: Normal Speech, Cranial Nerves 3-12 NL, Other (NIHSS = 0) Psych Exam: Positive: Mood NL, Memory Intact Other physical findings IMAGING: CT head without contrast 09/18/2018 - small vessel ischemic disease, mild volume loss. Portable chest x-ray in 09/18/2018 - no acute disease. Vital Signs Vital Signs Date Time Temp Pulse Resp B/P (MAP) Pulse Ox O2 Delivery O2 Flow Rate FiO2 09/18/18 19:01 116 94 09/18/18 18:21 161/79 (106) 09/18/18 17:16 Room Air 09/18/18 14:03 97.4 17 Height (in): 64 Weight (kg): 92.73 BMI (kg): 35.1 Laboratory Data Labs 24H Laboratory Tests 2 09/18/18 14:23: Immature Granulocyte % (Auto) 0.2, White Blood Count 8.0, Red Blood Count 4.05, Hemoglobin 13.1, Hematocrit 38.6, Mean Corpuscular Volume 95.3, Mean Corpuscular Hemoglobin 32.3, Mean Corpuscular Hemoglobin Concent 33.9, Red Cell Distribution Width 13.6, Platelet Count 256, Neutrophils (%) (Auto) 75.1H, Lymphocytes (%) (Auto) 14.2L, Monocytes (%) (Auto) 7.6H, Eosinophils (%) (Auto) 2.4, Basophils (%) (Auto) 0.5, Neutrophils # (Auto) 6.0, Lymphocytes # (Auto) 1.1L, Monocytes # (Auto) 0.6, Eosinophils # (Auto) 0.2, Basophils # (Auto) 0.0, Nucleated Red Blood Cells % (auto) 0.0, Prothrombin Time 13.4, Prothromb Time International Ratio 1.01, Activated Partial Thromboplast Time 26.6, Anion Gap 9, Glomerular Filtration Rate > 60.0, Blood Urea Nitrogen 15, Creatinine 0.88, Sodium Level 137, Potassium Level 4.2, Chloride Level 105, Carbon Dioxide Level 23, Calcium Level 8.5L, Total Creatine Kinase 82, Creatine Kinase MB 1.0, Creatine Kinase MB Relative Index 1.46, Troponin I < 0.02, Thyroid Stimulating Hormone (TSH) 2.740 09/18/18 18:12: Fibrinogen 460H, Triglycerides Level 153H, LDL Cholesterol 175H, Total Cholesterol 239H, Non-HDL Cholesterol (LDL + VLDL) 206, Total HDL Cholesterol 33L, Cholesterol/HDL Ratio 7.242H CBC/BMP Laboratory Tests 09/18/18 14:23 Red Blood Count 4.05, Mean Corpuscular Volume 95.3, Mean Corpuscular Hemoglobin 32.3, Mean Corpuscular Hemoglobin Concent 33.9, Red Cell Distribution Width 13.6, Neutrophils (%) (Auto) 75.1 H, Lymphocytes (%) (Auto) 14.2 L, Monocytes (%) (Auto) 7.6 H, Eosinophils (%) (Auto) 2.4, Basophils (%) (Auto) 0.5, Neutrophils # (Auto) 6.0, Lymphocytes # (Auto) 1.1 L, Monocytes # (Auto) 0.6, Eosinophils # (Auto) 0.2, Basophils # (Auto) 0.0, Calcium Level 8.5 L, Total Creatine Kinase 82 Plan / VTE VTE Prophylaxis Ordered?: Yes (TEDs, sequentials, knee high compression) Plan Plan 1. Expressive aphasia: Likely represents transient ischemic attack. Head CT is negative. Awaiting brain MRI and brain MRA. Have initiated atorvastatin. Aspirin on hold until MRI/MRA imaging has been obtained. Neurology has been consulted. Occupational therapy, speech therapy, and physical therapy have been ordered. Patient has a most form on file which indicates DNR, DNI, limited medical interventions, no feeding tubes, and the use of antibiotics. Will allow for permissive hypertension over the next 24-48 hours. MARIANELA inhibitor currently on hold. Neurological checks every 2 hours. 2. New onset atrial fibrillation with rapid ventricular response: Transthoracic echocardiogram has been ordered. Patient received a one-time dose of metoprolol 25 mg as well as 2 doses of metoprolol 5 mg IV in the emergency department. EKG reveals atrial fibrillation with rapid ventricular response. Cardiology has been consulted. Recommend initiating patient on metoprolol 25 mg by mouth every 6 hours with holding parameters for systolic blood pressure less than 110 and or heart rate less than 60. Brain MRI/MRA imaging will need to be obtained prior to anticoagulation. Once imaging is obtained and rules out hemorrhage for dose Lovenox anticoagulation can be initiated at approximately 0.75 mg/kg twice daily. Cardiology recommends initiating Lovenox 60 mg twice daily. 3. Diabetes mellitus: Continue sliding scale insulin 4 units subcutaneous with meals, hypoglycemic protocol, and consistent carbohydrate diet (admitted to 2 g sodium diet). 4. Hypertension: MARIANELA inhibitor currently on hold for permissive hypertension for the next 24-48 hours. 5. Hypothyroidism: Continue levothyroxine. 6. Depression: Continue Zoloft. 7. Allergies: Continue fluticasone nasal spray as needed. Disposition Admit: Progressive care unit Anticipated hospitalization: 2 nights Attending: Family practice Diet: Continue Current (2 g sodium) Activity: Continue Current (out of bed to chair with assist) Therapy: PT, OT, Speech Diagnostics: Check Labs, Repeat Labs in AM, MRI (brain), TTE Anticipated Discharge: Assisted Living Advanced Directives: MOLST Form is available, Do Not Resuscitate (DNR), Do Not Intubate (DNI) Attending Note Attending Note I have both independently examined this patient as well as reviewed the H and P. I have discussed in detail w the resident the findings and the plan of treatment as documented in the residents note. HAVEN WISEMAN DO Sep 18, 2018 19:46 GRACE YODER MD Sep 19, 2018 21:59
--- NOTE | 2018-09-18 20:52 | REPVR ---
EXAM: MR Head Without Contrast EXAM DATE/TIME: 09/18/2018 7:49 PM CLINICAL HISTORY: 88 years old, female; Signs and symptoms; Other: Aphasia TECHNIQUE: MR of the head without contrast. COMPARISON: MRI-Brain without Contrast 09/27/2016 2:10 PM FINDINGS: Brain: Linear focus of abnormality on diffusion weighted and ADC map images in the subinsular white matter on the right faintly visible on T1 and T2/flair weighted imaging consistent with an acute to subacute white matter infarct. Multiple foci of T2 lengthening are demonstrated in the subcortical, periventricular and centrum semiovale white matter consistent with age-related small vessel gliosis, stable in comparison to the prior study of 09/27/2016. Ventricles: Normal. No ventriculomegaly. Bones/joints: Unremarkable. Soft tissues: Normal. Sinuses: Normal as visualized. No acute sinusitis. Mastoid air cells: Normal as visualized. No mastoid effusion. Orbits: Unremarkable. IMPRESSION: 1. Linear focus of abnormality on diffusion weighted and ADC map images in the subinsular white matter on the right faintly visible on T1 and T2/flair weighted imaging consistent with an acute subacute white matter infarct. 2. Multiple foci of T2 lengthening are demonstrated in the subcortical, periventricular and centrum semiovale white matter consistent with age-related small vessel gliosis, stable in comparison to the prior study of 09/27/2016. THIS REPORT CONTAINS FINDINGS THAT MAY BE CRITICAL TO PATIENT CARE. The findings were verbally communicated via telephone conference with Dr. Rogers at 8:50 PM EST on 09/18/2018. The findings were acknowledged and understood. Electronically signed by: Jared Esposito On 09/18/2018 20:51:59 PM
--- NOTE | 2018-09-18 20:58 | REPVR ---
EXAM: MR Angiogram Head Without Contrast, Arteries EXAM DATE/TIME: 09/18/2018 7:49 PM CLINICAL HISTORY: 88 years old, female; Signs and symptoms; Other: Aphasia TECHNIQUE: MR angiogram head without contrast. Exam focused on the arteries. MIP reconstructed images were created and reviewed. COMPARISON: MRI-Brain without Contrast 09/27/2016 2:10 PM FINDINGS: Right internal carotid artery: Unremarkable. Intracranial segment is patent with no significant stenosis. No aneurysm. Right anterior cerebral artery: Unremarkable. No occlusion or significant stenosis. No aneurysm. Right middle cerebral artery: Decreased size of the M2 segment on the right. Right posterior cerebral artery: Unremarkable. No occlusion or significant stenosis. No aneurysm. Right vertebral artery: Unremarkable. No occlusion or significant stenosis. No aneurysm. Left internal carotid artery: Unremarkable. Intracranial segment is patent with no significant stenosis. No aneurysm. Left anterior cerebral artery: Unremarkable. No occlusion or significant stenosis. No aneurysm. Left middle cerebral artery: Unremarkable. No occlusion or significant stenosis. No aneurysm. Left posterior cerebral artery: Persistent origin of the left posterior cerebral artery. Left vertebral artery: Unremarkable. No occlusion or significant stenosis. No aneurysm. Basilar artery: Tortuous basilar artery. IMPRESSION: 1. 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 2. Decreased size of the M2 segment on the right. Electronically signed by: Jared Esposito On 09/18/2018 20:58:12 PM
[2018-09-18] MEDS: ATORVASTATIN 20 MG TAB PO SCH (21:00)
--- NOTE | 2018-09-18 21:07 | REPVR ---
EXAM: US Bilateral Duplex Bilateral Extracranial Arteries EXAM DATE/TIME: 09/18/2018 8:45 PM CLINICAL HISTORY: 88 years old, female; Signs and symptoms; Altered mental status/memory loss; Confusion or disorientation; Additional info: TIA TECHNIQUE: Bilateral Real-time Duplex ultrasound scan of the carotid and vertebral arteries combining osuna scale, color Doppler and spectral waveform analysis. COMPARISON: CT Head without contrast 09/18/2018 2:14 PM FINDINGS: Right common carotid artery: Unremarkable. No occlusion or significant stenosis. Waveforms are normal. Right internal carotid artery: There is mild atherosclerotic changes in the proximal right ICA estimated at less than 50 % consistent with a mild stenosis using SRU criteria. Right ICA/CCA ratio: Within normal limits. Right external carotid artery: No significant stenosis in the origin. Right vertebral artery: Unremarkable. Antegrade flow Left common carotid artery: Mild atherosclerotic plaques. No significant occlusion or significant stenosis. Waveforms are normal. Left internal carotid artery: There is mild atherosclerotic changes in the proximal left ICA estimated at less than 50 % consistent with a mild stenosis using SRU criteria. Left ICA/CCA ratio: Within normal limits. Left external carotid artery: No significant stenosis in the origin. Left vertebral artery: Unremarkable. Antegrade flow. IMPRESSION: 1. There is mild atherosclerotic changes in the proximal right ICA estimated at less than 50 % consistent with a mild stenosis using SRU criteria. 2. There is mild atherosclerotic changes in the proximal left ICA estimated at less than 50 % consistent with a mild stenosis using SRU criteria. COMMENT: Carotid Stenosis Reference using SRU criteria: Mild: <50% stenosis. ICA PSV is less than 125 cm/second and plaque or intimal thickening is visible. Moderate: 50-69% stenosis. ICA PSV is 125 to 230 cm/second and plaque is visible. Severe: 70-94% stenosis. ICA PSV is more than 230 cm/second and visible plaque and lumen narrowing are seen. Near occlusion: 95-99% stenosis. ICA PSV is variable and significant plaque and luminal narrowing are seen. Occluded: 100% stenosis. No flow identified. Electronically signed by: Jared Esposito On 09/18/2018 21:06:34 PM
[2018-09-18 22:04] VITALS: BP 170/98
[2018-09-18] MEDS: SERTRALINE 100 MG TAB PO SCH (22:30)
[2018-09-18 23:49] VITALS: BP 152/80
[2018-09-18 23:59] VITALS: BP 131/72
[2018-09-19 04:00] VITALS: BP 151/73
[2018-09-19 05:32] VITALS: BP 130/80
[2018-09-19] MEDS: LEVOTHYROXINE 50MCG TABLET (0.05MG) PO SCH (05:38)
[2018-09-19] MEDS: METOPROLOL TART 25 MG TABLET PO SCH ×3 (05:39→17:11)
[2018-09-19 05:43] LABS: HEMATOCRIT 40.4 % (36.0-47.0); HEMOGLOBIN 13.3 g/dl (12.0-15.5); MEAN CORPUSCULAR HEMOGLOBIN 31.4 pg (27.0-33.0); MEAN CORPUSCULAR HGB CONC 32.9 g/dl (32.0-36.5); MEAN CORPUSCULAR VOLUME 95.5 fl (80.0-96.0); PLATELET COUNT, AUTOMATED 326 10^3/uL (150-450); RED BLOOD COUNT 4.23 10^6/uL (4.00-5.40); WHITE BLOOD COUNT 9.4 10^3/uL (4.0-10.0)
[2018-09-19 06:10] LABS: BLOOD UREA NITROGEN 11 MG/DL (7-18); CALCIUM LEVEL 8.6 MG/DL (8.8-10.2); CARBON DIOXIDE LEVEL 25 MEQ/L (21-32); CHLORIDE LEVEL 107 MEQ/L (98-107); CREATININE FOR GFR 0.77 MG/DL (0.55-1.30); GLOMERULAR FILTRATION RATE > 60.0 (>32); GLUCOSE, FASTING 89 MG/DL (70-100); POTASSIUM SERUM 3.6 MEQ/L (3.5-5.1); SODIUM LEVEL 140 MEQ/L (136-145)
--- NOTE | 2018-09-19 07:14 | CR ---
DATE OF CONSULTATION: 09/19/2018 REFERRING PHYSICIAN: Dr. Resendez REASON FOR CONSULTATION: Transient ischemic attack. HISTORY OF PRESENT ILLNESS: Leilani Trevino is an 88-year-old woman who was admitted at [facility] due to episode of expressive aphasia this morning. The patient states that she was unable to come up with words and speak and it lasted for 5-10 minutes. She states that it happened around 9:00 a.m.. By the time she came to emergency department, her symptoms had already resolved. She denies any numbness, weakness of her arms and legs. She denies any headaches, neck or back pain. She denies dysphagia, diplopia or urinary incontinence. The patient has been living independently and functioning quite well. She lives alone. In the emergency department, she was found to have new-onset atrial fibrillation. Her CT scan of head and chest x-ray were unremarkable. PAST MEDICAL HISTORY: Diabetes. Hypertension. Hypothyroidism. Depression. Seasonal allergies. Constipation. Total hip replacement on right side. Hysterectomy. ALLERGIES: PENICILLIN. HOME MEDICATIONS: - aspirin 81 mg by mouth daily - Coreg 3.125 mg tablet, two tablets by mouth twice daily - vitamin D3 2000 units by mouth daily - insulin NovoLog 4 units subcutaneous with meals - insulin Tresiba 64 units subcutaneous daily - levothyroxine 50 mcg by mouth daily - magnesium oxide 800 mg by mouth daily - Zoloft 100 mg by mouth daily - trandolapril 2 mg by mouth daily SOCIAL HISTORY: The patient lives alone. She has 10 children. FAMILY HISTORY: Mother had kidney cancer. Father from suicide in 70s. One brother had heart disease. REVIEW OF SYSTEMS: All systems were reviewed and found to be noncontributory except as mentioned in history of present illness. PHYSICAL EXAMINATION: Blood pressure 161/79, pulse 116, respiratory 17, temperature 97.4. Heart irregularly irregular. Lungs: Clear to auscultation. Abdomen: Soft, nontender, nondistended. No pedal edema. No musculoskeletal abnormalities. No rash. No musculoskeletal abnormalities. No ataxia or dysmetria. No signs of meningeal irritation. No tremor. The patient is oriented to place, date, year, name of president, city, state and day of week. Her speech is normal with normal understanding, comprehension and repetition. No facial weakness. Tongue and uvula are midline. Extraocular muscles are intact. Visual whitten are full to confrontation. Recent and distant memory is intact. Pupils are 5 mm bilaterally reactive to light. 5/5 strength in all four extremities. Deep tendon flexes are 1+ throughout but absent at ankles. She has decreased cold pinprick vibration sensation in her feet. Gait was not tested. DIAGNOSTIC STUDIES: CT scan of head and chest x-ray were unremarkable. EEG revealed atrial fibrillation. ASSESSMENT: 1. Transient ischemic attack. 2. There is concern for middle cerebral artery ischemic stroke. 3. New-onset atrial fibrillation. PLAN: 1. MRI and MRA brain. 2. Carotid ultrasound. 3. Echocardiogram. 4. Continue telemetry monitoring. 5. If MRI brain shows an acute stroke, we should start her on low dose Eliquis 2.5 mg by mouth twice daily and slowly increase it to 5 mg by mouth twice daily or use subcutaneous heparin with oral Coumadin in order to avoid hemorrhagic conversion of acute ischemic stroke. 6. Follow with our office in 2-4 weeks after hospital discharge. TROY
[2018-09-19 08:00] VITALS: BP 165/94
[2018-09-19] MEDS: MAGNESIUM OXIDE 400 MG TAB (MAG-OX) PO SCH (09:12)
[2018-09-19] MEDS: HumaLOG INSULIN (NovoLOG) PER UNIT SC SCH ×3 (09:12→18:44)
[2018-09-19] MEDS: VITAMIN D 1,000 INTERNATIONAL UNITS TABLET PO SCH (09:12)
[2018-09-19] MEDS: ENOXAPARIN 60 MG/0.6 ML SYR (J1650) SC SCH ×2 (10:18→20:33)
--- NOTE | 2018-09-19 11:51 | IPNPDOC ---
Subjective Date Seen The patient was seen on 09/19/18. Subjective Chief Complaint/HPI Patient lying in bed sleeping comfortably when I entered the room. Patient offered no complaints, reported to feel well. She was AOx3 Constitutional: Denies: Chills, Fever Pulmonary: Denies: Dyspnea, Cough Cardiovascular: Denies: Chest Pain, Palpitations, Orthopnea, Edema Gastrointestinal: Denies: Nausea, Vomiting, Abdominal Pain Neurological: Reports: Change in speech (some mild expressive aphasia ); Denies: Confusion Psych: Reports: Mood Normal Objective Physical Examination General Exam: Positive: Alert, Cooperative, No Acute Distress Eye Exam: Positive: PERRLA, Conjunctiva & lids normal, EOMI, Sclera icteric; Negative: Ptosis ENT Exam: Positive: Atraumatic, Mucous membr. moist/pink, Pharynx Normal, Tongue Midline, Nares Patent; Negative: Pharyngeal Edema Neck Exam: Positive: Supple, +2 carotid pulse wo bruit; Negative: thyromegaly, Lymphadenopathy Chest Exam: Positive: Clear to auscultation, Normal air movement; Negative: Rales, Rhonchi, Wheezing, Diminished Heart Exam: Positive: Tachycardic, Irregular Rhythm; Negative: Normal S1, Normal S2, Gallops, Murmurs, Rubs Telemetry: Positive: Atrial fibrillation, Other Telemetry: (with rapid ventricular response) Abdomen Exam: Positive: Normal bowel sounds, Soft; Negative: Tenderness, Hepatospenomegaly, Mass, Hernia Extremity Exam: Negative: Clubbing, Cyanosis, Edema, Normal pulses (atrial fibrillation with rapid ventricular response), Tenderness, Swelling Skin Exam: Negative: Rash, Breakdown, Lesion Neuro Exam: Positive: Normal Speech, Cranial Nerves 3-12 NL, 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 MRI and MRA obtained. Very mild residual left sided weakness with mild expressive aphasia. Patient was started on Levnox by cardiology. PT and OT following. Swallow eval performed. Patient to be started on a soft mechanical diet MRI: IMPRESSION 1. Linear focus of abnormality on diffusion weighted and ADC map images in the subinsular white matter on the right faintly visible on T1 and T2/flair weighted imaging consistent with an acute subacute white matter infarct. 2. Multiple foci of T2 lengthening are demonstrated in the subcortical, periventricular and centrum semiovale white matter consistent with age-related small vessel gliosis, stable in comparison to the prior study of 09/27/2016. MRA: IMPRESSION 1. 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 2. Decreased size of the M2 segment on the right. (2) Atrial fibrillation with RVR Status: Acute Response to Treatment: Stable Problem Specific Plan: Consult Specialist Problem Text: 09/19/18: Cardiology consulted and following. Patient was started on Lovenox. Patient on Metoprolol 25 mg q 6hrs. Rate has been between 96-110. Plan/VTE VTE Prophylaxis Ordered?: Yes (TEDs, sequentials, knee high compression) Plan Diet: Continue Current (2 g sodium) Activity: Continue Current (out of bed to chair with assist) Therapy: PT, OT, Speech Diagnostics: Check Labs, Repeat Labs in AM, MRI (brain), TTE Anticipated Discharge: Assisted Living VS, I&O, 24H, [facility] Vital Signs/I&O Vital Signs Date Time Temp Pulse Resp B/P (MAP) Pulse Ox O2 Delivery O2 Flow Rate FiO2 09/19/18 08:00 97.1 102 20 165/94 (117) 98 Nasal Cannula 2.0 I&O- Last 24 Hours up to 6 AM 09/19/18 06:00 Intake Total 540 ml Output Total 350 ml Balance 190 ml Laboratory Data 24H LABS Laboratory Tests 2 09/18/18 14:23: Immature Granulocyte % (Auto) 0.2, White Blood Count 8.0, Red Blood Count 4.05, Hemoglobin 13.1, Hematocrit 38.6, Mean Corpuscular Volume 95.3, Mean Corpuscular Hemoglobin 32.3, Mean Corpuscular Hemoglobin Concent 33.9, Red Cell Distribution Width 13.6, Platelet Count 256, Neutrophils (%) (Auto) 75.1H, Lymphocytes (%) (Auto) 14.2L, Monocytes (%) (Auto) 7.6H, Eosinophils (%) (Auto) 2.4, Basophils (%) (Auto) 0.5, Neutrophils # (Auto) 6.0, Lymphocytes # (Auto) 1.1L, Monocytes # (Auto) 0.6, Eosinophils # (Auto) 0.2, Basophils # (Auto) 0.0, Nucleated Red Blo od Cells % (auto) 0.0, Prothrombin Time 13.4, Prothromb Time International Ratio 1.01, Activated Partial Thromboplast Time 26.6, Anion Gap 9, Glomerular Filtration Rate > 60.0, Blood Urea Nitrogen 15, Creatinine 0.88, Sodium Level 137, Potassium Level 4.2, Chloride Level 105, Carbon Dioxide Level 23, Calcium Level 8.5L, Total Creatine Kinase 82, Creatine Kinase MB 1.0, Creatine Kinase MB Relative Index 1.46, Troponin I < 0.02, Thyroid Stimulating Hormone (TSH) 2.740 09/18/18 18:12: Fibrinogen 460H, Triglycerides Level 153H, LDL Cholesterol 175H, Total Cholesterol 239H, Non-HDL Cholesterol (LDL + VLDL) 206, Total HDL Cholesterol 33L, Cholesterol/HDL Ratio 7.242H 09/18/18 21:03: Bedside Glucose (Misc Panel) 87 09/19/18 05:01: Nucleated Red Blood Cells % (auto) 0.0, Anion Gap 8, Glomerular Filtration Rate > 60.0, Blood Urea Nitrogen 11, Creatinine 0.77, Sodium Level 140, Potassium Level 3.6, Chloride Level 107, Carbon Dioxide Level 25, Calcium Level 8.6L CBC/BMP Laboratory Tests 09/18/18 14:23 Red Blood Count 4.05, Mean Corpuscular Volume 95.3, Mean Corpuscular Hemoglobin 32.3, Mean Corpuscular Hemoglobin Concent 33.9, Red Cell Distribution Width 13.6, Neutrophils (%) (Auto) 75.1 H, Lymphocytes (%) (Auto) 14.2 L, Monocytes (%) (Auto) 7.6 H, Eosinophils (%) (Auto) 2.4, Basophils (%) (Auto) 0.5, Neutroph ils # (Auto) 6.0, Lymphocytes # (Auto) 1.1 L, Monocytes # (Auto) 0.6, Eosinophils # (Auto) 0.2, Basophils # (Auto) 0.0, Calcium Level 8.5 L, Total Creatine Kinase 82 09/19/18 05:01 Red Blood Count 4.23, Mean Corpuscular Volume 95.5, Mean Corpuscular Hemoglobin 31.4, Mean Corpuscular Hemoglobin Concent 32.9, Red Cell Distribution Width 13.6, Calcium Level 8.6 L MARIAM SANTIAGO [facility] Sep 19, 2018 11:51
[2018-09-19 12:00] VITALS: BP 123/69
[2018-09-19] MEDS ORDERED: METOPROLOL TART 25 MG TABLET PO ONE (13:30)
--- NOTE | 2018-09-19 15:48 | NUR ---
Pt seen this date for clinical swallow evaluation d/t slurred speech. Pt presents with mild-moderate oral phase dysphagia. Recommend: Level 2 solids (moist/soft mechanical soft-no bread crust, cut < dime size) and thin liquids. Pt would benefit from full set up of meals and a clothing protector. Pt also assessed for speech production. Mild dysarthria present Basic understanding and sentence construction intact. Addendum: 09/19/18 at 1555 by KERRI [facility] Amended: Links added.
--- NOTE | 2018-09-19 15:53 | NUR ---
Pt seen this date for clinical swallow evaluation d/t slurred speech production upon admission. Pt presents with mild-moderate oral phase dysphagia. Recommend: Level 2 solids (moist mechanical soft solids, no bread crust, foods cut< dime size) and thin liquids. Pt does need assist with meal set up. Pt would benefit from clothing protector. Pt presents with mild dysarthria. Understanding and construction of basic language intact. Addendum: 09/19/18 at 1555 by KERRI CALHOUN [facility] Amended: Links added.
[2018-09-19 20:00] VITALS: BP 143/84
[2018-09-19] MEDS: SERTRALINE 100 MG TAB PO SCH (20:33)
[2018-09-19] MEDS: ATORVASTATIN 20 MG TAB PO SCH (20:33)
--- NOTE | 2018-09-19 21:10 | CR ---
DATE OF CONSULTATION: 09/18/2018 REFERRING PHYSICIAN: Dr. Liz Licona INDICATION: Atrial fibrillation, cerebrovascular accident (CVA). HISTORY OF PRESENT ILLNESS: Mrs. Trevino is previously unknown to me. She is a very pleasant 88-year-old female who presented yesterday to [facility] ([facility]) with expressive aphasia and was found to be in atrial fibrillation with rapid ventricular response. CT imaging revealed evidence for cerebrovascular accident that was confirmed by MRI. There were also abnormalities consistent with age-related gliosis. She was given beta blockers that led to slowing of her heart rate, and when I saw her this morning had she was in rate-controlled atrial fibrillation. She has no awareness of palpitations and consequently is unable to tell when her atrial fibrillation started. Besides still persistent mild expressive aphasia, she has no other complaints. She did not notice any chest pain. She did not have any shortness of breath, and she denies any weakness of her extremities. PAST MEDICAL HISTORY: 1. Hypothyroidism. 2. Type 2 diabetes. 3. Hypertension. 4. Depression. The patient denies any history of cardiac problems. ALLERGIES: PENICILLIN. OUTPATIENT MEDICATIONS: - aspirin - Coreg 3.125 twice a day - vitamin D - insulin - levothyroxine 50 mcg day - magnesium oxide - sertraline 100 mg a day - trandolapril 2 mg daily SURGICAL HISTORY: Positive for: 1. Right hip replacement. 2. Hysterectomy. FAMILY HISTORY: Father of suicide, mother of renal cell carcinoma. One of her brothers of myocardial infarction. SOCIAL HISTORY: The patient is a . She was twice. She never smoked and never drank alcohol. 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 Currently resides in assisted living. Children are in town. REVIEW OF SYSTEMS: She denies any fever, chills, nausea, vomiting, diarrhea, chest pain, palpitations, shortness of breath, dizziness, syncope, or near-syncope. She denies any history of bleeding problems. At her baseline she is able to ambulate about her apartment but is not overly active, limited mostly by the orthopedic problems. PHYSICAL EXAMINATION: Mrs. Trevino is very pleasant elderly woman. She does not appear in any distress. When I saw her she was sitting in a chair next to her bed. Last documented blood pressure was 165/94, but previously most of the measurements were lower. Heart rate mostly 90s, low 100s, atrial fibrillation. Afebrile. Saturation 98% of liters of oxygen by nasal cannula. Weight was documented yesterday at 97 kg. Her jugular venous pulse (JVP) is not elevated. I did not appreciate any carotid bruit. Lungs were reasonably clear to auscultation with good air movement. Heart exam reveals irregularly irregular rhythm without gallop, rub, or murmur. Abdomen: Soft, nontender. Extremities are free of edema. Peripheral pulses are palpable, even though not of great quality. Neurologically, she moves all four extremities. I could not demonstrate any distinct weakness. She still had mild expressive aphasia. I did not test her gait formally. LABORATORY: CBC was normal. Basic metabolic panel was normal. Lipid panel revealed total cholesterol 239, LDL 175, triglycerides 155, and HDL cholesterol 33. TSH was 2.7. Her neurologic imaging as per history of present illness. Her chest x-ray did not reveal any obvious abnormality. I do not appreciate any cardiomegaly or congestive heart failure. Her electrocardiogram revealed presence of atrial fibrillation with ventricular rate 115 beats per minute. There was minimal nonspecific repolarization abnormality, but overall, besides atrial fibrillation, essentially normal ECG. Echocardiogram is pending. ASSESSMENT AND PLAN: Mrs. Trevino is an elderly woman who has hypertension, diabetes, and presents with cerebrovascular accident. She was simultaneously found to be in atrial fibrillation. It is very likely that the atrial fibrillation is the cause of her cerebrovascular event. As far as the management of atrial fibrillation is concerned, at this point we should focus on the rate rather than the rhythm control. She currently is reasonably well controlled on 25 mg of metoprolol every 6 hours, but if needed the dose can be further increased. She should be monitored on telemetry at least 72 hours or longer, depending on her clinical course. As far as the anticoagulation is concerned, I understand there is a reluctance to administer full anticoagulation due fresh ischemic event. Consequently, I gave her Lovenox 60 mg twice a day. It is slightly subtherapeutic dose, but I foresee that within next 1-2 days it will be replaced by full anticoagulation, most likely in the form of Xarelto or Eliquis. This will principally depend on her clinical course. Will obtain an echocardiogram, but considering presentation with stroke, I do not foresee that we would attempt to re-establish sinus rhythm. There is no congestive heart failure, and there are no symptoms to suggest underlying coronary artery disease, even though she very likely just because of her risk factors and age has coronary artery disease CAD). We will add statin, which was already done. She will also pursue appropriate vascular imaging of her cerebrovascular circulation and may need additional interventions depending on results. I will follow the patient with you.
[2018-09-20] VITALS: BP 138/87
[2018-09-20] MEDS: METOPROLOL TART 25 MG TABLET PO SCH ×2 (00:38→06:43)
[2018-09-20 04:00] VITALS: BP 138/57
[2018-09-20 05:58] LABS: HEMOGLOBIN 12.9 g/dl (12.0-15.5); MEAN CORPUSCULAR HEMOGLOBIN 31.7 pg (27.0-33.0); MEAN CORPUSCULAR HGB CONC 33.1 g/dl (32.0-36.5); MEAN CORPUSCULAR VOLUME 95.8 fl (80.0-96.0); PLATELET COUNT, AUTOMATED 267 10^3/uL (150-450); RED BLOOD COUNT 4.07 10^6/uL (4.00-5.40); WHITE BLOOD COUNT 7.3 10^3/uL (4.0-10.0)
[2018-09-20 06:22] LABS: BLOOD UREA NITROGEN 11 MG/DL (7-18); CALCIUM LEVEL 8.6 MG/DL (8.8-10.2); CARBON DIOXIDE LEVEL 26 MEQ/L (21-32); CHLORIDE LEVEL 106 MEQ/L (98-107); CREATININE FOR GFR 0.88 MG/DL (0.55-1.30); GLOMERULAR FILTRATION RATE > 60.0 (>32); GLUCOSE, FASTING 127 MG/DL (70-100); POTASSIUM SERUM 4.3 MEQ/L (3.5-5.1); SODIUM LEVEL 138 MEQ/L (136-145)
--- NOTE | 2018-09-20 06:38 | ECHO ---
DATE OF STUDY: 09/19/2018 REFERRING PHYSICIAN: Dr. Liz Licona INDICATION: Acute stroke. HEIGHT: 162 cm. WEIGHT: 92.7 kg. 2-D MEASUREMENTS: Left atrium: 3.5 cm Aortic annulus: 2.0 cm Aortic root: 3.1 cm Ventricular septum: 1.16 cm Posterior wall: 1.18 cm Left ventricle diastole: 4.1 cm Inferior vena cava: 1.7 cm (more than 50% respiratory variation) DOPPLER MEASUREMENTS: Aortic valve velocity: 155 cm/sec LVOT velocity: 83.5 cm/sec LVOT VTI: 16.8 cm Very mild mitral regurgitation Estimated right ventricular systolic pressure 29 mmHg assuming a right atrial pressure of 5 mmHg DESCRIPTION: The rhythm was atrial fibrillation. Image quality was fair. No pericardial effusion. This was a 2-D, M-mode, color flow Doppler and pulse wave Doppler examination and included mitral annular tissue Doppler. CONCLUSIONS: 1. Normal left ventricle internal dimensions and wall thickness. Normal regional LV wall motion and wall thickening. Normal LV systolic function. LVEF 70% by visual estimate. Unable to determine LV diastolic function in the setting of atrial fibrillation. 2. Mild left atrial dilatation. 3. Moderate aortic valve sclerosis of a 3-cuspid aortic valve. No aortic regurgitation or stenosis. 4. Moderate mitral annular calcification. No mitral stenosis or regurgitation.
[2018-09-20] MEDS: LEVOTHYROXINE 50MCG TABLET (0.05MG) PO SCH (06:42)
[2018-09-20 07:48] VITALS: BP 144/97
[2018-09-20] MEDS: ENOXAPARIN 60 MG/0.6 ML SYR (J1650) SC SCH (07:54)
[2018-09-20] MEDS: VITAMIN D 1,000 INTERNATIONAL UNITS TABLET PO SCH (07:55)
[2018-09-20] MEDS: MAGNESIUM OXIDE 400 MG TAB (MAG-OX) PO SCH (07:55)
[2018-09-20] MEDS: HumaLOG INSULIN (NovoLOG) PER UNIT SC SCH ×3 (07:55→17:47)
[2018-09-20] MEDS ORDERED: FUROSEMIDE 20 MG/2 ML VIAL (J1940) IV ONE (08:30)
--- NOTE | 2018-09-20 08:50 | IPN ---
DATE: 09/20/2018 Mrs. Trevino is feeling better from neurologic perspective. She feels that her speech impediment has completely resolved, and indeed, I do not appreciate any hesitance on her part during the encounter. On the other hand, she does complain about feeling short of breath. She denies any palpitations or chest discomfort. Vital signs: Blood pressure 144/97. Heart rate has been from 80s to 120s, is atrial fibrillation. She is afebrile. Saturation 95% on room air. Weight is 97.9 kg. She is alert and oriented and appropriate. Her jugular venous pulse (JVP) is about 3-4 cm above clavicle. Lungs are clear. I do not appreciate any wheezing or crackles, but she is mildly tachypneic and she looks visibly short of breath. Heart exam reveals irregular tachycardia. Heart rate is slightly over 100 during my exam. I do not appreciate any gallop or rub. Abdomen is soft, nontender. There is no peripheral edema. Neurologically, no deficits. Laboratories: Normal complete blood count (CBC) and normal basic metabolic panel with the exception of glucose 127. ASSESSMENT AND PLAN: Mrs. Trevino is an 88-year-old female who presents with cerebrovascular accident and is found to atrial fibrillation (AFib) with rapid ventricular response (RVR). As far as the management of atrial fibrillation is concerned, her heart rate is not perfectly well controlled and I am going to advance the dose of metoprolol to 50 mg every 8 hours with holding parameters. She has been on slightly subtherapeutic dose of Lovenox and I am going to start full anticoagulation tonight. It has been more than 48 hours since the initial event. Her echocardiogram revealed preserved left ventricular systolic function, but she is short of breath and I suspect that she has a mild form of congestive heart failure possibly related to tachycardia. I will give a single dose of furosemide and I am hoping it will bring symptomatic improvement. I do not have any plans to considering cardioverting patient in the setting of recent stroke. Also considering her advanced age, I foresee that we will continue rate control strategy.
[2018-09-20] MEDS ORDERED: SLF 3 ML SYR IV PRN (09:00)
--- NOTE | 2018-09-20 10:44 | IPNPDOC ---
Subjective Date Seen The patient was seen on 09/20/18. Subjective Chief Complaint/HPI Patient lying comfortably in bed as I entered the room. She offers no complaints. She states she feels well. She did report some SOB to cardiology this morning, however, she reported to be feeling much better when I evaluated her Constitutional: Denies: Chills, Fever Pulmonary: Reports: Other Symptoms (Patient reported SOB to cardiology, no SOB reported when evaluated ); Denies: Dyspnea, Cough, Pleuritic Chest Pain Cardiovascular: Denies: Chest Pain, Palpitations, Orthopnea, Edema Gastrointestinal: Denies: Nausea, Vomiting, Abdominal Pain Neurological: Denies: Confusion Psych: Reports: Mood Normal Objective Physical Examination General Exam: Positive: Alert, Cooperative, No Acute Distress Eye Exam: Positive: PERRLA, Conjunctiva & lids normal, EOMI, Sclera icteric; Negative: Ptosis ENT Exam: Positive: Atraumatic, Mucous membr. moist/pink, Pharynx Normal, Tongue Midline, Nares Patent; Negative: Pharyngeal Edema Neck Exam: Positive: Supple, +2 carotid pulse wo bruit; Negative: thyromegaly, Lymphadenopathy Chest Exam: Positive: Clear to auscultation, Normal air movement; Negative: Rales, Rhonchi, Wheezing, Diminished Heart Exam: Positive: Tachycardic, Irregular Rhythm; Negative: Normal S1, Normal S2, Gallops, Murmurs, Rubs Telemetry: Positive: Atrial fibrillation, Other Telemetry: (with rapid ventricular response) Abdomen Exam: Positive: Normal bowel sounds, Soft; Negative: Tenderness, Hepatospenomegaly, Mass, Hernia Extremity Exam: Negative: Clubbing, Cyanosis, Edema, Normal pulses (atrial fibrillation with rapid ventricular response), Tenderness, Swelling Skin Exam: Negative: Rash, Breakdown, Lesion Neuro Exam: Positive: Normal Speech (Normal this morning ), Cranial Nerves 3-12 NL Psych Exam: Positive: Mood NL, Memory Intact Assessment /Plan Problems (1) Cerebrovascular accident, embolic Status: Acute Response to Treatment: Stable Problem Text: embolic CVA 2 new onset AF Very mild residual left sided weakness with mild expressive aphasia. 09/2018 carotid US c B ICA <50% MRI: IMPRESSION 1. Linear focus of abnormality on diffusion weighted and ADC map images in the subinsular white matter on the right faintly visible on T1 and T2/flair weighted imaging consistent with an acute subacute white matter infarct. 2. Multiple foci of T2 lengthening are demonstrated in the subcortical, periventricular and centrum semiovale white matter consistent with age-related small vessel gliosis, stable in comparison to the prior study of 09/27/2016. MRA: IMPRESSION 1. 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 2. Decreased size of the M2 segment on the right. (2) Atrial fibrillation with RVR Status: Acute Response to Treatment: Stable Problem Specific Plan: Consult Specialist Problem Text: 09/20 HR control on met tar 50 TID, LMWH changed to apixiban 5 BID (to start 09/20 PM) given stable neuro exam (3) Physical deconditioning Status: Chronic Problem Text: 09/20 PT not safe to return to [facility] (dc plan back to [facility]) (4) Hypothyroid Status: Chronic Problem Text: 09/2018 TSH 2.7 on HD LT4 50 (5) Hyperlipidemia Status: Acute Problem Text: 09/2017 LDL 175; therefore, HI statin-+ atorva 40 Plan/VTE VTE Prophylaxis Ordered?: Yes (TEDs, sequentials, knee high compression, E liquis) Plan Diet: Continue Current (2 g sodium) Activity: Continue Current (out of bed to chair with assist) Therapy: PT, OT, Speech Diagnostics: Check Labs, Repeat Labs in AM, MRI (brain), TTE Anticipated Discharge: Assisted Living VS, I&O, 24H, [facility] Vital Signs/I&O Vital Signs Date Time Temp Pulse Resp B/P (MAP) Pulse Ox O2 Delivery O2 Flow Rate FiO2 09/20/18 07:48 97.6 89 18 144/97 (113) 95 Room Air 09/19/18 08:00 2.0 I&O- Last 24 Hours up to 6 AM 09/20/18 06:00 Intake Total 1140 ml Output Total 750 ml Balance 390 ml Laboratory Data 24H LABS Laboratory Tests 2 09/19/18 12:25: Bedside Glucose (Misc Panel) 157H 09/19/18 17:09: Bedside Glucose (Misc Panel) 173H 09/19/18 23:07: Bedside Glucose (Misc Panel) 107 09/20/18 05:31: Nucleated Red Blood Cells % (auto) 0.0, Anion Gap 6L, Glomerular Filtration Rate > 60.0, Blood Urea Nitrogen 11, Creatinine 0.88, Sodium Level 138, Potassium Level 4.3, Chloride Level 106, Carbon Dioxide Level 26, Calcium Level 8.6L CBC/BMP Laboratory Tests 09/20/18 05:31 Red Blood Count 4.07, Mean Corpuscular Volume 95.8, Mean Corpuscular Hemoglobin 31.7, Mean Corpuscular Hemoglobin Concent 33.1, Red Cell Distribution Width 13.6, Calcium Level 8.6 L MARIAM SANTIAGO Sep 20, 2018 09:03 Clyde Mueller M.D. Sep 20, 2018 16:31
[2018-09-20 11:48] VITALS: BP 116/81
[2018-09-20] MEDS: METOPROLOL TART 50 MG TAB PO SCH ×2 (13:10→22:14)
[2018-09-20] MEDS: SLF 3 ML SYR IV SCH ×2 (13:11→22:00)
[2018-09-20 15:59] VITALS: BP 139/85
[2018-09-20 20:00] VITALS: BP 128/80
[2018-09-20] MEDS: APIXABAN 5 MG TAB (ELIQUIS) PO SCH (22:13)
[2018-09-20] MEDS: SERTRALINE 100 MG TAB PO SCH (22:13)
[2018-09-20] MEDS: ATORVASTATIN 20 MG TAB PO SCH (22:13)
[2018-09-21] VITALS (8 sets, daily range): BP systolic 128–160; BP diastolic 57–94
[2018-09-21 05:58] LABS: HEMATOCRIT 39.9 % (36.0-47.0); MEAN CORPUSCULAR HEMOGLOBIN 31.7 pg (27.0-33.0); MEAN CORPUSCULAR HGB CONC 32.6 g/dl (32.0-36.5); MEAN CORPUSCULAR VOLUME 97.3 fl (80.0-96.0); PLATELET COUNT, AUTOMATED 257 10^3/uL (150-450); WHITE BLOOD COUNT 7.2 10^3/uL (4.0-10.0)
[2018-09-21] MEDS: SLF 3 ML SYR IV SCH ×3 (06:12→20:45)
[2018-09-21] MEDS: METOPROLOL TART 50 MG TAB PO SCH (06:13)
[2018-09-21] MEDS: LEVOTHYROXINE 50MCG TABLET (0.05MG) PO SCH (06:13)
[2018-09-21 06:22] LABS: BLOOD UREA NITROGEN 16 MG/DL (7-18); CALCIUM LEVEL 8.6 MG/DL (8.8-10.2); CARBON DIOXIDE LEVEL 28 MEQ/L (21-32); CHLORIDE LEVEL 105 MEQ/L (98-107); CREATININE FOR GFR 0.92 MG/DL (0.55-1.30); GLOMERULAR FILTRATION RATE > 60.0 (>32); GLUCOSE, FASTING 236 MG/DL (70-100); POTASSIUM SERUM 4.5 MEQ/L (3.5-5.1); SODIUM LEVEL 139 MEQ/L (136-145)
[2018-09-21] MEDS: HumaLOG INSULIN (NovoLOG) PER UNIT SC SCH ×3 (08:11→18:28)
[2018-09-21] MEDS: APIXABAN 5 MG TAB (ELIQUIS) PO SCH ×2 (08:11→20:44)
[2018-09-21] MEDS: VITAMIN D 1,000 INTERNATIONAL UNITS TABLET PO SCH (08:11)
[2018-09-21] MEDS: MAGNESIUM OXIDE 400 MG TAB (MAG-OX) PO SCH (08:11)
--- NOTE | 2018-09-21 08:16 | IPN ---
DATE: 09/21/2018 Mrs. Trevino is feeling well. She tells me that her feeling of dyspnea from yesterday completely resolved. She denies any chest pain or sensation of palpitations. Her speech is intact. Vital signs: Blood pressure this morning was 136/92 and has been generally lower than that. Heart rate though remains tachycardiac usually between 100 and 120 beats per minute. She is afebrile. Weight 97.2 kg. She is alert and oriented and appropriate in good spirits. Her jugular venous pulse (JVP) is not high. Lungs are clear. Heart exam reveals irregular tachycardia. No gallop. Abdomen soft. Extremities free of edema. Neurologically she is intact. LABORATORY: Basic metabolic panel is normal but for glucose 236 and CBC is normal. ASSESSMENT AND PLAN: Mrs. Trevino is an 88-year-old female who presented with expressive aphasia and was found to have a stroke. Simultaneously she was diagnosed with atrial fibrillation. She was initially anticoagulated with Lovenox and then switched to Eliquis yesterday she tolerated the medication well so far. Her heart rate was mildly tachycardic and we have been progressively increasing the doses of metoprolol, but so far the heart rate control is not perfect. I am going to increase the dose further to 100 mg twice a day today. Hopefully this will be sufficient to bring her heart rate down to around 100 beats per minute at least I do not foresee any further interventions. She also has been started on high dose Lipitor. I am hoping that she will be able to go home tomorrow or very soon. TROY
[2018-09-21] MEDS ORDERED: METOPROLOL TART 50 MG TAB PO ONE (09:00)
--- NOTE | 2018-09-21 09:08 | IPNPDOC ---
Subjective Date Seen The patient was seen on 09/21/18. Subjective Chief Complaint/HPI Patient sitting comfortably in chair as I entered the room. She reported feeling "wonderful". Offered no complaints. Constitutional: Denies: Chills, Fever Pulmonary: Denies: Dyspnea, Cough, Pleuritic Chest Pain Gastrointestinal: Denies: Nausea, Abdominal Pain, Diarrhea, Constipation Psych: Reports: Mood Normal Objective Physical Examination General Exam: Positive: Alert, Cooperative, No Acute Distress Eye Exam: Positive: PERRLA, Conjunctiva & lids normal, EOMI, Sclera icteric; Negative: Ptosis ENT Exam: Positive: Atraumatic, Mucous membr. moist/pink, Pharynx Normal, Tongue Midline, Nares Patent; Negative: Pharyngeal Edema Neck Exam: Positive: Supple, +2 carotid pulse wo bruit; Negative: thyromegaly, Lymphadenopathy Chest Exam: Positive: Clear to auscultation, Normal air movement; Negative: Rales, Rhonchi, Wheezing, Diminished Heart Exam: Positive: Tachycardic, Irregular Rhythm; Negative: Normal S1, Normal S2, Gallops, Murmurs, Rubs Telemetry: Positive: Atrial fibrillation, Other Telemetry: (with rapid ventricular response) Abdomen Exam: Positive: Normal bowel sounds, Soft; Negative: Tenderness, Hepatospenomegaly, Mass, Hernia Extremity Exam: Negative: Clubbing, Cyanosis, Edema, Tenderness, Swelling Skin Exam: Negative: Rash, Breakdown, Lesion Neuro Exam: Positive: Normal Speech (Normal this morning ), Cranial Nerves 3-12 NL Psych Exam: Positive: Mood NL, Memory Intact Assessment /Plan Problems (1) Cerebrovascular accident, embolic Status: Acute Response to Treatment: Stable Problem Text: 09/21/18: Aphasia much improved embolic CVA 2 new onset AF Very mild residual left sided weakness with mild expressive aphasia. 09/2018 carotid US c B ICA <50% MRI: IMPRESSION 1. Linear focus of abnormality on diffusion weighted and ADC map images in the subinsular white matter on the right faintly visible on T1 and T2/flair weighted imaging consistent with an acute subacute white matter infarct. 2. Multiple foci of T2 lengthening are demonstrated in the subcortical, periventricular and centrum semiovale white matter consistent with age-related small vessel gliosis, stable in comparison to the prior study of 09/27/2016. MRA: IMPRESSION 1. 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 2. Decreased size of the M2 segment on the right. (2) Atrial fibrillation with RVR Status: Acute Response to Treatment: Stable Problem Specific Plan: Consult Specialist Problem Text: 09/21/18: HR improving not controlled. Cardiology increased Metoprolol to 100mg po bid. On Apixiban 5 mg bid 1/10 HR control on met tar 50 TID, LMWH changed to apixiban 5 BID (to start / PM) given stable neuro exam (3) Physical deconditioning Status: Chronic Problem Text: 09/21/18: Continues to work with PT 09/20 PT not safe to return to [facility] (dc plan back to [facility]) (4) Hypothyroid Status: Chronic Problem Text: 09/2018 TSH 2.7 on HD LT4 50 (5) Hyperlipidemia Status: Acute Problem Text: 09/2017 LDL 175; therefore, HI statin-+ atorva 40 Plan/VTE VTE Prophylaxis Ordered?: Yes (TEDs, sequentials, knee high compression, Eliquis) Plan Diet: Continue Current (2 g sodium) Activity: Continue Current (out of bed to chair with assist) Therapy: PT, OT, Speech Diagnostics: Check Labs, Repeat Labs in AM, MRI (brain), TTE Anticipated Discharge: Assisted Living VS, I&O, 24H, [facility] Vital Signs/I&O Vital Signs Date Time Temp Pulse Resp B/P (MAP) Pulse Ox O2 Delivery O2 Flow Rate FiO2 09/21/18 09:00 102 159/75 09/21/18 04:00 97.9 20 95 Room Air 09/19/18 08:00 2.0 I&O- Last 24 Hours up to 6 AM 09/21/18 06:00 Intake Total 1800 ml Output Total 1970 ml Balance -170 ml Laboratory Data 24H LABS Laboratory Tests 2 09/20/18 11:41: Bedside Glucose (Misc Panel) 266H 09/20/18 17:37: Bedside Glucose (Misc Panel) 285H 09/21/18 05:31: Nucleated Red Blood Cells % (auto) 0.0, Anion Gap 6L, Glomerular Filtration Rate > 60.0, Blood Urea Nitrogen 16, Creatinine 0.92, Sodium Level 139, Potassium Level 4.5, Chloride Level 105, Carbon Dioxide Level 28, Calcium Level 8.6L CBC/BMP Laboratory Tests 09/21/18 05:31 Red Blood Count 4.10, Mean Corpuscular Volume 97.3 H, Mean Corpuscular Hemoglobin 31.7, Mean Corpuscular Hemoglobin Concent 32.6, Red Cell Distribution Width 13.6, Calcium Level 8.6 L [facility] Sep 21, 2018 09:08
[2018-09-21] MEDS: ATORVASTATIN 20 MG TAB PO SCH (20:44)
[2018-09-21] MEDS: SERTRALINE 100 MG TAB PO SCH (20:44)
[2018-09-21] MEDS: METOPROLOL TARTRATE 100 MG TAB PO SCH (20:44)
[2018-09-21] MEDS ORDERED: LEVEMIR (INSULIN DETEMIR) 1 UNITS/0.01ML SC SCH (21:00)
[2018-09-21] MEDS ORDERED: HumaLOG INSULIN (NovoLOG) PER UNIT SC SCH (21:00)
[2018-09-22 04:45] VITALS: BP 115/73
[2018-09-22 05:22] LABS: HEMATOCRIT 39.4 % (36.0-47.0); HEMOGLOBIN 12.7 g/dl (12.0-15.5); MEAN CORPUSCULAR HEMOGLOBIN 31.4 pg (27.0-33.0); MEAN CORPUSCULAR HGB CONC 32.2 g/dl (32.0-36.5); MEAN CORPUSCULAR VOLUME 97.3 fl (80.0-96.0); PLATELET COUNT, AUTOMATED 268 10^3/uL (150-450); RED BLOOD COUNT 4.05 10^6/uL (4.00-5.40); WHITE BLOOD COUNT 8.8 10^3/uL (4.0-10.0)
[2018-09-22 05:42] LABS: BLOOD UREA NITROGEN 17 MG/DL (7-18); CALCIUM LEVEL 8.5 MG/DL (8.8-10.2); CARBON DIOXIDE LEVEL 26 MEQ/L (21-32); CHLORIDE LEVEL 105 MEQ/L (98-107); GLOMERULAR FILTRATION RATE > 60.0 (>32); GLUCOSE, FASTING 202 MG/DL (70-100); NT-PRO BNP 1502 PG/ML (<450); POTASSIUM SERUM 4.1 MEQ/L (3.5-5.1); SODIUM LEVEL 140 MEQ/L (136-145)
[2018-09-22] MEDS: SLF 3 ML SYR IV SCH ×3 (05:56→21:08)
[2018-09-22] MEDS: LEVOTHYROXINE 50MCG TABLET (0.05MG) PO SCH (05:56)
[2018-09-22] MEDS ORDERED: HumaLOG INSULIN (NovoLOG) PER UNIT SC SCH (07:30)
[2018-09-22 08:00] VITALS: BP 140/72
[2018-09-22] MEDS: APIXABAN 5 MG TAB (ELIQUIS) PO SCH ×2 (08:08→21:08)
[2018-09-22] MEDS: VITAMIN D 1,000 INTERNATIONAL UNITS TABLET PO SCH (08:08)
[2018-09-22] MEDS: METOPROLOL TARTRATE 100 MG TAB PO SCH ×2 (08:08→21:09)
[2018-09-22] MEDS: MAGNESIUM OXIDE 400 MG TAB (MAG-OX) PO SCH (08:09)
--- NOTE | 2018-09-22 09:43 | IPNPDOC ---
Subjective Date Seen The patient was seen on 09/22/18. Subjective Chief Complaint/HPI Patient was laying on bed when I walked into exam room, stating that she needs help to the bathroom. Re-visit after pt finished bowel movement. Patient states that she is feeling good with no complaints. BNP was elevated today but patient denies any SOB or orthopnea; stated she slept well last night. Denies any chest pain, palpitation, weakness, or dysphagia. Pt expressed the wish to be d/c home. Metoprolol PO increased to 100mg BID and insulin determir 15 units started yesterday. General: Denies: Chills Constitutional: Denies: Chills, Fever, Weakness (Denies weakness) ENT: Denies: Head Aches, Dysphagia Pulmonary: Denies: Dyspnea, Pleuritic Chest Pain Cardiovascular: Denies: Chest Pain, Palpitations, Orthopnea, Paroxysmal Noc. Dyspnea Gastrointestinal: Denies: Nausea, Vomiting, Abdominal Pain Neurological: Denies: Weakness Objective Physical Examination General Exam: Positive: Alert, Cooperative, No Acute Distress Eye Exam: Positive: PERRLA, Conjunctiva & lids normal, EOMI; Negative: Sclera icteric, Ptosis ENT Exam: Positive: Atraumatic, Mucous membr. moist/pink, Pharynx Normal, Ton jaylan Midline, Nares Patent, Other ENT (No deviation of uvula); Negative: Pharyngeal Edema Neck Exam: Positive: Supple, +2 carotid pulse wo bruit; Negative: thyromegaly, Lymphadenopathy Chest Exam: Positive: Clear to auscultation, Normal air movement; Negative: Rales, Rhonchi, Wheezing, Diminished Heart Exam: Positive: Tachycardic, Irregular Rhythm; Negative: Normal S1, Normal S2, Gallops, Murmurs, Rubs Telemetry: Positive: Atrial fibrillation, Other Telemetry: (Tachycardia HR at 107) Abdomen Exam: Positive: Normal bowel sounds, Soft; Negative: Tenderness Extremity Exam: Negative: Clubbing, Cyanosis, Edema, Swelling Skin Exam: Negative: Rash, Breakdown, Lesion Neuro Exam: Positive: Normal Speech (Able to repeat. No expressive or recetive aphasia noted. No slurred speech), Cranial Nerves 3-12 NL; Negative: Strength at 5/5 X4 ext (+2/5 right upper extremity strength. +5/5 in the other extremities. [employer] Specialist strength +5/5 bilaterally) Psych Exam: Positive: Mental status NL, Mood NL, Memory Intact, Oriented x 3 Assessment /Plan Problems (1) Cerebrovascular accident, embolic Status: Acute Response to Treatment: Stable Problem Text: 09/22/18: Swallow eval level 3 solid. Right upper extremity strength 2/5. No dysphasia noted. BP controlled appro for ischemic stroke after 24 hrs. Continue Metoprolol, Atorvastatin, Eliquis. Insulin sliding scale adjusted for better blood glucose control and determir increased to 230; Goal 140-180 per AHA/CAROLE guideline. PT noted significant improvement. 09/21/18: Aphasia much improved embolic CVA 2 new onset AF Very mild residual left sided weakness with mild expressive aphasia. 09/2018 carotid US c B ICA <50% MRI: IMPRESSION 1. Linear focus of abnormality on diffusion weighted and ADC map images in the subinsular white matter on the right faintly visible on T1 and T2/flair weighted imaging consistent with an acute subacute white matter infarct. 2. Multiple foci of T2 lengthening are demonstrated in the subcortical, periventricular and centrum semiovale white matter consistent with age-related small vessel gliosis, stable in comparison to the prior study of 09/27/2016. MRA: IMPRESSION 1. 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 2. Decreased size of the M2 segment on the right. (2) Atrial fibrillation with RVR Status: Acute Response to Treatment: Stable Problem Specific Plan: Consult Specialist Problem Text: 09/22/18: HR not controlled 102-120 today. On Metoprolol 100mg PO BID and Apirxaban 5mg BID. Continue Statin. LVEF 70% echo 09/19/18. Pt lives at home by herself. Desired to go home. Discussed w/ patient likely d/c tmrw. 09/21/18: HR improving not controlled. Cardiology increased Metoprolol to 100mg po bid. On Apixiban 5 mg bid 1/10 HR control on met tar 50 TID, LMWH changed to apixiban 5 BID (to start 1/10 PM) given stable neuro exam (3) Physical deconditioning Status: Chronic Problem Text: 09/22/18: PT safe for d/c to assisted living 09/21/18: Continues to work with PT 09/20 PT not safe to return to [facility] (dc plan back to [facility]) (4) Hypothyroid Status: Chronic Problem Text: 09/2018 TSH 2.7 on HD LT4 50 (5) Hyperlipidemia Status: Acute Problem Text: 09/2017 LDL 175; therefore, HI statin-+ atorva 40 (6) DM2 (diabetes mellitus, type 2) Problem Text: Blood sugar elevated in the 300s range. Confirmed with nursing pt received 16 units of humalog + 15 units of determir. Determir QHS increased to 23 unit. Sliding scale schedule adjusted as determir won't be started until tonight, original sliding scale may be resumed tomorrow. Fingerstick glucose as scheduled Plan/VTE VTE Prophylaxis Ordered?: Yes (TEDs, sequentials, knee high compression, Eliquis) Plan Diet: Continue Current (2 g sodium) Activity: Continue Current (out of bed to chair with assist) Therapy: PT, OT, Speech Diagnostics: Check Labs, Repeat Labs in AM, MRI (brain), TTE Anticipated Discharge: Assisted Living VS, I&O, 24H, [facility] Vital Signs/I&O Vital Signs Date Time Temp Pulse Resp B/P (MAP) Pulse Ox O2 Delivery O2 Flow Rate FiO2 09/22/18 08:08 120 140/72 09/22/18 08:00 97.2 18 100 Room Air 09/19/18 08:00 2.0 I&O- Last 24 Hours up to 6 AM 09/22/18 06:00 Intake Total 1240 ml Output Total 2075 ml Balance -835 ml Laboratory Data 24H LABS Laboratory Tests 2 09/21/18 12:14: Bedside Glucose (Misc Panel) 362H 09/21/18 16:29: Bedside Glucose (Misc Panel) 332H 09/21/18 20:34: Bedside Glucose (Misc Panel) 336H 09/22/18 04:53: Nucleated Red Blood Cells % (auto) 0.0, Anion Gap 9, Glomerular Filtration Rate > 60.0, Blood Urea Nitrogen 17, Creatinine 0.90, Sodium Level 140, Potassium Level 4.1, Chloride Level 105, Carbon Dioxide Level 26, Calcium Level 8.5L, JJ-Shb-I-Type Natriuretic Peptide 1502H CBC/BMP Laboratory Tests 09/22/18 04:53 Red Blood Count 4.05, Mean Corpuscular Volume 97.3 H, Mean Corpuscular Hemoglobin 31.4, Mean Corpuscular Hemoglobin Concent 32.2, Red Cell Distribution Width 13.5, Calcium Level 8.5 L YESY YAP DO Sep 22, 2018 09:43
[2018-09-22 12:00] VITALS: BP 152/70
--- NOTE | 2018-09-22 12:03 | IPN ---
DATE: 09/22/2018 Mrs. Trevino has no complaints today. She tells me that she is feeling well and would like to go home. She ambulated on the room with a walker even though in assisted living she walks without assistance. Her vital signs this morning, blood pressure 140/72, heart rate has been mildly tachycardiac most often between 100-120 beats per minute. When I saw her this morning, it was in 90s. Afebrile. Saturations 100% on room air. Fluid balance yesterday was documented negative 1100, but the weight is unchanged at 97.2. She is alert and oriented and appropriate. Her jugular venous pulse (JVP) does not look high. I do not appreciate any wheezing, crackles or rhonchi. Heart exam reveals irregularly irregular rhythm without gallop. Abdomen is obese but soft and there is no peripheral edema. Neurologically, she is intact. She no longer has an expressive aphasia. I did not formally test her strengths but she does not appreciate any subjective weakness. Laboratory karimi: Basic metabolic panel is normal but for glucose of 202. Her N terminal proBNP was 1500. CBC: Hemoglobin 12.7, hematocrit 39 and platelet count 268,000. ASSESSMENT AND PLAN: Mrs. Trevino is an 88-year-old female who presented with stroke manifesting itself as expressive aphasia. She was found to be in atrial fibrillation with rapid ventricular response. She was initially anticoagulated with Lovenox and then switched to Eliquis. The dose of beta-blockers has been progressively increased and currently she is receiving 100 mg twice a day and yet her heart rate is still not well-controlled. Even though I am somewhat reluctant to add additional medications, we may need to do so. I am going though to wait because she received only two doses, and consequently, the metoprolol did not reach steady state yet. I believe that she is only mildly tachycardiac and the arrhythmia is asymptomatic, and consequently, I would not introduce additional medications as yet. Provided she does not slow down after 3-4 days, then addition of digoxin can be considered. Chronic anticoagulation will be continued. Even though her N terminal proBNP is high, I suspect it is mostly on account of tachycardia. She feels well and denies any dyspnea. Consequently, I am not going to introduce additional medications. This will have to be reevaluated after a few days. From my perspective, patient can be discharged. I spoke with Lucy Cole NP and apparently the [facility] group will arrange for followup next week. I will tentatively see her in our office in about 2 weeks.
[2018-09-22] MEDS: HumaLOG INSULIN (NovoLOG) PER UNIT SC SCH ×4 (12:28→21:08)
[2018-09-22 16:00] VITALS: BP 154/70
[2018-09-22 20:00] VITALS: BP 130/80
[2018-09-22] MEDS: LEVEMIR (INSULIN DETEMIR) 1 UNITS/0.01ML SC SCH (21:00)
[2018-09-22] MEDS: SERTRALINE 100 MG TAB PO SCH (21:09)
[2018-09-22] MEDS: ATORVASTATIN 20 MG TAB PO SCH (21:09)
[2018-09-23] VITALS: BP 130/62
[2018-09-23 04:00] VITALS: BP 138/88
[2018-09-23 05:20] LABS: HEMATOCRIT 39.2 % (36.0-47.0); HEMOGLOBIN 13.1 g/dl (12.0-15.5); MEAN CORPUSCULAR HEMOGLOBIN 31.6 pg (27.0-33.0); MEAN CORPUSCULAR HGB CONC 33.4 g/dl (32.0-36.5); MEAN CORPUSCULAR VOLUME 94.7 fl (80.0-96.0); PLATELET COUNT, AUTOMATED 271 10^3/uL (150-450); RED BLOOD COUNT 4.14 10^6/uL (4.00-5.40); WHITE BLOOD COUNT 8.1 10^3/uL (4.0-10.0)
[2018-09-23 05:44] LABS: BLOOD UREA NITROGEN 18 MG/DL (7-18); CARBON DIOXIDE LEVEL 25 MEQ/L (21-32); CHLORIDE LEVEL 106 MEQ/L (98-107); CREATININE FOR GFR 0.76 MG/DL (0.55-1.30); GLOMERULAR FILTRATION RATE > 60.0 (>32); GLUCOSE, FASTING 181 MG/DL (70-100); POTASSIUM SERUM 3.9 MEQ/L (3.5-5.1); SODIUM LEVEL 140 MEQ/L (136-145)
[2018-09-23] MEDS: SLF 3 ML SYR IV SCH ×3 (06:00→21:24)
[2018-09-23] MEDS: LEVOTHYROXINE 50MCG TABLET (0.05MG) PO SCH (06:30)
[2018-09-23] MEDS ORDERED: HumaLOG INSULIN (NovoLOG) PER UNIT SC SCH (07:30)
[2018-09-23 08:00] VITALS: BP 138/82
[2018-09-23] MEDS: HumaLOG INSULIN (NovoLOG) PER UNIT SC SCH ×4 (08:50→21:22)
[2018-09-23] MEDS: MAGNESIUM OXIDE 400 MG TAB (MAG-OX) PO SCH (08:51)
[2018-09-23] MEDS: VITAMIN D 1,000 INTERNATIONAL UNITS TABLET PO SCH (08:51)
[2018-09-23] MEDS: APIXABAN 5 MG TAB (ELIQUIS) PO SCH ×2 (08:51→21:20)
[2018-09-23] MEDS: METOPROLOL TARTRATE 100 MG TAB PO SCH ×2 (08:55→21:23)
[2018-09-23 12:00] VITALS: BP 130/62
--- NOTE | 2018-09-23 12:04 | IPN ---
DATE: 09/23/2018 Mrs. Trevino remains unchanged. She feels well. Denies any palpitations, chest pain or shortness of breath. Telemetry monitoring continues to reveal atrial fibrillation. Her heart rate is a little bit better on average around 100 beats per minute. Vital signs: Otherwise blood pressure 138/82, heart rate as above. She is afebrile. Saturation 98% on room air. Fluid balance yesterday was relatively equal and weighed 94.1. She is alert and oriented, appropriate. I do not appreciate any speech impediment. Her jugular venous pressure is not high. Lungs are clear with good air movement. Heart: Exam reveals an irregular rhythm. No gallop, rub or murmur. Abdomen is soft, nontender. No edema. Neurologically intact. LABORATORY Normal CBC and normal basic metabolic panel but for glucose 181. ASSESSMENT/PLAN Mrs. Leilani Trevino is an 88-year-old female who presented with CVA and was found to be in atrial fibrillation (a-fib) with rapid ventricular response (RVR). Fortunately the neurologic manifestations has virtually completely resolved. As far as the management of atrial fibrillation is concerned, she has been anticoagulated with Eliquis and rate control with metoprolol. She already takes 100 mg twice a day and her heart rate is still a little faster than I would prefer, but I am reluctant to add additional medications. I will reevaluate her in a few days when the metoprolol will reach steady state. I suspect that the current dose will be sufficient. She tentatively will be discharged tomorrow. Apparently the facility would not accept the patient back on the weekend.
[2018-09-23] MEDS ORDERED: ELIQ5TAB PO (12:06)
[2018-09-23] MEDS ORDERED: LOPR1TAB7 PO (12:06)
[2018-09-23] MEDS ORDERED: ATOR1TAB21 PO (12:11)
[2018-09-23] MEDS ORDERED: ATOR40TA75 PO (12:13)
[2018-09-23 14:30] VITALS: BP 142/84
[2018-09-23] MEDS: ATORVASTATIN 20 MG TAB PO SCH (21:20)
[2018-09-23] MEDS: SERTRALINE 100 MG TAB PO SCH (21:20)
[2018-09-23] MEDS: LEVEMIR (INSULIN DETEMIR) 1 UNITS/0.01ML SC SCH (21:21)
[2018-09-23 22:00] VITALS: BP 132/77
[2018-09-24] MEDS: LEVOTHYROXINE 50MCG TABLET (0.05MG) PO SCH (05:25)
[2018-09-24] MEDS: SLF 3 ML SYR IV SCH (05:27)
[2018-09-24 06:00] VITALS: BP 120/72
[2018-09-24 06:19] LABS: HEMOGLOBIN 11.2 g/dl (12.0-15.5); MEAN CORPUSCULAR HEMOGLOBIN 30.6 pg (27.0-33.0); MEAN CORPUSCULAR HGB CONC 33.9 g/dl (32.0-36.5); MEAN CORPUSCULAR VOLUME 90.2 fl (80.0-96.0); PLATELET COUNT, AUTOMATED 344 10^3/uL (150-450); RED BLOOD COUNT 3.66 10^6/uL (4.00-5.40); WHITE BLOOD COUNT 9.4 10^3/uL (4.0-10.0)
[2018-09-24 06:44] LABS: BLOOD UREA NITROGEN 15 MG/DL (7-18); CALCIUM LEVEL 8.8 MG/DL (8.8-10.2); CARBON DIOXIDE LEVEL 26 MEQ/L (21-32); CHLORIDE LEVEL 106 MEQ/L (98-107); CREATININE FOR GFR 0.85 MG/DL (0.55-1.30); GLOMERULAR FILTRATION RATE > 60.0 (>32); GLUCOSE, FASTING 141 MG/DL (70-100); SODIUM LEVEL 140 MEQ/L (136-145)
[2018-09-24] MEDS: VITAMIN D 1,000 INTERNATIONAL UNITS TABLET PO SCH (08:44)
[2018-09-24] MEDS: HumaLOG INSULIN (NovoLOG) PER UNIT SC SCH (08:44)
[2018-09-24] MEDS: APIXABAN 5 MG TAB (ELIQUIS) PO SCH (08:45)
[2018-09-24] MEDS: MAGNESIUM OXIDE 400 MG TAB (MAG-OX) PO SCH (08:45)
[2018-09-24 08:58] VITALS: BP 130/76
[2018-09-24] MEDS: METOPROLOL TARTRATE 100 MG TAB PO SCH (08:58)
--- NOTE | 2018-09-24 10:24 | DSES ---
DATE OF ADMISSION: 09/18/2018 DATE OF DISCHARGE: PRINCIPAL DIAGNOSIS: Stroke secondary to presumed embolic event with expressive aphasia. SECONDARY DIAGNOSES: 1. New onset atrial fibrillation with rapid ventricular response. 2. Hyperlipidemia. 3. Hypothyroidism. 4. Physical deconditioning. HISTORY: Leilani Trevino presented with a stroke. Details in history and physical on admission. HOSPITAL COURSE: 1. The patient was admitted to a medical bed. She underwent rehabilitation through physical therapy. She was found to be in atrial fibrillation with rapid ventricular response. She had an echocardiogram. Left atrium was 35 mm. Ejection fraction was 70%. No significant valvular disease was found. Her rate was slow to come better control but eventually it reached our goal and was consistently below 100 on the day of discharge. She was seen by cardiology, who agreed with anticoagulation. Carotid ultrasound showed less than 50% internal carotid artery stenosis bilaterally. Clinically her aphasia was significantly improved. She had minimal left-sided weakness, a little bit of mild expressive aphasia. She might be considered for some further therapy as an outpatient though she has improved to the point where I did not set this up on discharge. 2. Atrial fibrillation with rapid ventricular response. Escalating dose of metoprolol led to control of her heart rate. Previously was on carvedilol. Was switched to metoprolol in hospital. She was started on an anticoagulant with Eliquis 5 mg twice a day, which she tolerated without excessive bleeding. 3. Diabetes. Her diabetes was managed with insulin sliding scale. 4. Hypertension. Blood pressure is has stayed under good control during the course of her hospitalization. Significant labs on day of discharge, electrolytes unremarkable. Sodium 140, potassium 3.9, BUN 18, creatinine 0.7. White count 8.1, hemoglobin 13, platelets 271. Lipids on admission had a total cholesterol of 139, LDL of 175, HDL of 33. She was started on moderate intensity statin with atorvastatin 40 mg daily. She was discharged on Eliquis 5 mg twice a day, atorvastatin 40 mg daily, metoprolol 100 mg twice a day. She will continue on Tylenol as needed, aspirin 81 mg daily, fluticasone 2 sprays daily as needed for nasal congestion, levothyroxine 50 mcg daily, Tresiba 64 units daily, aspart insulin sliding scale with meals, levothyroxine 50 mcg daily, sertraline 100 mg daily, trandolapril 2 mg daily, vitamin D 2000 units daily. She is to stop carvedilol and naproxen. Followup with Colleen Daley PA-C in 1 week. No added salt, low fat and cholesterol diet advised.
== END 2018-09-24 11:48 | disposition home health service (06) | DRG 308 ==
LOC: M ED 13:53 → EDBD 13:53 → M ED INP 17:20 → M PCU 21:18 → M MSPAV 09-23 14:18
PROVIDERS: ADMIT Internal Medicine; ATTEND Family Medicine
DX: I48.91 Unspecified atrial fibrillation (principal); I63.449 Cerebral infarction due to embolism of unspecified cerebellar artery; E03.9 Hypothyroidism, unspecified; E78.5 Hyperlipidemia, unspecified; I69.320 Aphasia following cerebral infarction; E11.9 Type 2 diabetes mellitus without complications; I10 Essential (primary) hypertension; F32.9 Major depressive disorder, single episode, unspecified; K59.00 Constipation, unspecified; Z88.0 Allergy status to penicillin; Z96.641 Presence of right artificial hip joint; Z79.82 Long term (current) use of aspirin; Z79.899 Other long term (current) drug therapy

== ENCOUNTER → 2018-09-25 | Outpatient (REF) | payer MEDICARE, OTHER ==
[~2018-09-25] MED LIST: ACET-683 PO; ASPI1TAB15 PO; ATOR1TAB21 PO; ATOR40TA75 PO; CARV3.12 PO; ELIQ5TAB PO; FLUTISP NARES; LEVO50TA5 PO; LOPR1TAB7 PO; MAGO400T PO; MILK120011 PO; NAPR220C PO; NOVOINJ3 SC; SERT-138 PO; TRAN1TAB48 PO; TRES1INJ2 SC; VITA2000 PO
[2018-09-25 12:56] LABS: HEMATOCRIT 41.4 % (36.0-47.0); HEMOGLOBIN 13.6 g/dl (12.0-15.5); MEAN CORPUSCULAR HEMOGLOBIN 31.6 pg (27.0-33.0); MEAN CORPUSCULAR HGB CONC 32.9 g/dl (32.0-36.5); MEAN CORPUSCULAR VOLUME 96.3 fl (80.0-96.0); PLATELET COUNT, AUTOMATED 297 10^3/uL (150-450); WHITE BLOOD COUNT 8.8 10^3/uL (4.0-10.0)
[2018-09-25 14:27] LABS: HEMOGLOBIN A1c 8.7 %
== END ==
LOC: M SFHCADAM 11:19
PROVIDERS: ATTEND Physician Assistant
DX: E11.65 Type 2 diabetes mellitus with hyperglycemia (principal); I48.2 Chronic atrial fibrillation
CPT/HCPCS: 83036; 85027; G0463

== ENCOUNTER → 2018-12-18 | Outpatient (REF) | payer MEDICARE, OTHER ==
[2018-12-18 15:55] LABS: ALBUMIN 3.3 GM/DL (3.2-5.2); ALT/SGPT 20 U/L (12-78); BILIRUBIN,TOTAL 0.4 MG/DL (0.2-1.0); BLOOD UREA NITROGEN 21 MG/DL (7-18); CALCIUM LEVEL 8.8 MG/DL (8.8-10.2); CARBON DIOXIDE LEVEL 26 MEQ/L (21-32); CHLORIDE LEVEL 105 MEQ/L (98-107); CREATININE FOR GFR 0.92 MG/DL (0.55-1.30); GLOMERULAR FILTRATION RATE > 60.0 (>32); GLUCOSE, FASTING 263 MG/DL (70-100); POTASSIUM SERUM 4.3 MEQ/L (3.5-5.1); SODIUM LEVEL 139 MEQ/L (136-145); TOTAL PROTEIN 6.8 GM/DL (6.4-8.2)
[2018-12-18 15:56] LABS: HEMATOCRIT 42.8 % (36.0-47.0); HEMOGLOBIN 13.7 g/dl (12.0-15.5); MEAN CORPUSCULAR HEMOGLOBIN 30.9 pg (27.0-33.0); MEAN CORPUSCULAR VOLUME 96.6 fl (80.0-96.0); PLATELET COUNT, AUTOMATED 290 10^3/uL (150-450); RED BLOOD COUNT 4.43 10^6/uL (4.00-5.40); WHITE BLOOD COUNT 8.4 10^3/uL (4.0-10.0)
[2018-12-18 16:05] LABS: HEMOGLOBIN A1c 8.9 %
== END ==
LOC: M SFHCADAM 11:47
PROVIDERS: ATTEND Physician Assistant
DX: E11.65 Type 2 diabetes mellitus with hyperglycemia (principal); I10 Essential (primary) hypertension
CPT/HCPCS: 80053; 83036; 85027; G0463

== ENCOUNTER → 2019-03-19 | Outpatient (REF) | payer MEDICARE, OTHER ==
[2019-03-19 09:53] LABS: CALCIUM LEVEL 9.3 MG/DL (8.8-10.2); GLOMERULAR FILTRATION RATE 55.7 (>32); POTASSIUM SERUM 4.2 MEQ/L (3.5-5.1)
== END ==
PROVIDERS: ATTEND Anesthesiology
DX: I50.9 Heart failure, unspecified (principal)

== ENCOUNTER → 2019-04-17 | Outpatient (REF) | payer MEDICARE, OTHER ==
[2019-04-17 08:52] LABS: CALCIUM LEVEL 8.9 MG/DL (8.8-10.2); CREATININE FOR GFR 0.96 MG/DL (0.55-1.30); GLOMERULAR FILTRATION RATE 58.4 (>32); POTASSIUM SERUM 3.9 MEQ/L (3.5-5.1)
[2019-04-17 10:13] LABS: HEMOGLOBIN A1c 8.9 %
== END ==
PROVIDERS: ATTEND Physician Assistant
DX: E11.65 Type 2 diabetes mellitus with hyperglycemia (principal); I50.32 Chronic diastolic (congestive) heart failure

== ENCOUNTER → 2019-08-14 | Outpatient (REF) | payer MEDICARE, OTHER ==
[2019-08-14 09:02] LABS: HEMATOCRIT 41.4 % (36.0-47.0); HEMOGLOBIN 13.4 g/dl (12.0-15.5); MEAN CORPUSCULAR HEMOGLOBIN 31.5 pg (27.0-33.0); MEAN CORPUSCULAR HGB CONC 32.4 g/dl (32.0-36.5); MEAN CORPUSCULAR VOLUME 97.2 fl (80.0-96.0); PLATELET COUNT, AUTOMATED 283 10^3/uL (150-450); RED BLOOD COUNT 4.26 10^6/uL (4.00-5.40); WHITE BLOOD COUNT 8.9 10^3/uL (4.0-10.0)
[2019-08-14 09:30] LABS: ALBUMIN 3.2 GM/DL (3.2-5.2); BILIRUBIN,TOTAL 0.6 MG/DL (0.2-1.0); CALCIUM LEVEL 8.9 MG/DL (8.8-10.2); CREATININE FOR GFR 0.95 MG/DL (0.55-1.30)
[2019-08-14 10:20] LABS: HEMOGLOBIN A1c 8.7 %
== END ==
PROVIDERS: ATTEND Physician Assistant
DX: E11.65 Type 2 diabetes mellitus with hyperglycemia (principal); I50.32 Chronic diastolic (congestive) heart failure; I48.20 Chronic atrial fibrillation, unspecified

== ENCOUNTER → 2019-08-20 | Outpatient (REF) | payer MEDICARE, OTHER ==
[2019-08-20 11:52] LABS: HEMATOCRIT 43.1 % (36.0-47.0); HEMOGLOBIN 13.7 g/dl (12.0-15.5); MEAN CORPUSCULAR HEMOGLOBIN 31.6 pg (27.0-33.0); MEAN CORPUSCULAR HGB CONC 31.8 g/dl (32.0-36.5); MEAN CORPUSCULAR VOLUME 99.5 fl (80.0-96.0); PLATELET COUNT, AUTOMATED 283 10^3/uL (150-450); RED BLOOD COUNT 4.33 10^6/uL (4.00-5.40); WHITE BLOOD COUNT 8.8 10^3/uL (4.0-10.0)
[2019-08-20 12:11] LABS: HEMOGLOBIN A1c 8.6 %
[2019-08-20 12:31] LABS: ALBUMIN 3.1 GM/DL (3.2-5.2); ALT/SGPT 21 U/L (12-78); BILIRUBIN,TOTAL 0.8 MG/DL (0.2-1.0); BLOOD UREA NITROGEN 13 MG/DL (7-18); CALCIUM LEVEL 8.7 MG/DL (8.8-10.2); CARBON DIOXIDE LEVEL 27 MEQ/L (21-32); CHLORIDE LEVEL 108 MEQ/L (98-107); CREATININE FOR GFR 0.86 MG/DL (0.55-1.30); GLOMERULAR FILTRATION RATE > 60.0 (>32); GLUCOSE, FASTING 75 MG/DL (70-100); POTASSIUM SERUM 4.1 MEQ/L (3.5-5.1); SODIUM LEVEL 145 MEQ/L (136-145); TOTAL PROTEIN 6.9 GM/DL (6.4-8.2)
== END ==
PROVIDERS: ATTEND Physician Assistant
DX: E11.65 Type 2 diabetes mellitus with hyperglycemia (principal); I50.32 Chronic diastolic (congestive) heart failure; I48.20 Chronic atrial fibrillation, unspecified

== ENCOUNTER → 2020-02-10 | Outpatient (REF) | payer MEDICARE, OTHER, BC ==
[2020-02-10 08:56] LABS: BASO # 0.1 10^3/uL (0.0-0.2); BASO % 0.6 % (0.0-1.0); EOS # 0.2 10^3/uL (0.0-0.5); EOS % 2.4 % (0.0-3.0); HEMATOCRIT 38.7 % (36.0-47.0); HEMOGLOBIN 12.6 g/dl (12.0-15.5); LYMPH # 1.4 10^3/uL (1.5-5.0); LYMPH % 16.8 % (24.0-44.0); MEAN CORPUSCULAR HEMOGLOBIN 31.5 pg (27.0-33.0); MEAN CORPUSCULAR HGB CONC 32.6 g/dl (32.0-36.5); MEAN CORPUSCULAR VOLUME 96.8 fl (80.0-96.0); MONO # 0.6 10^3/uL (0.0-0.8); MONO % 7.3 % (0.0-5.0); NEUTROPHILS # 5.9 10^3/uL (1.5-8.5); NEUTROPHILS % 72.4 % (36.0-66.0); PLATELET COUNT, AUTOMATED 250 10^3/uL (150-450); WHITE BLOOD COUNT 8.2 10^3/uL (4.0-10.0)
[2020-02-10 09:30] LABS: ALBUMIN 2.6 GM/DL (3.2-5.2); ALT/SGPT 15 U/L (12-78); BILIRUBIN,TOTAL 0.6 MG/DL (0.2-1.0); BLOOD UREA NITROGEN 15 MG/DL (7-18); CALCIUM LEVEL 8.5 MG/DL (8.8-10.2); CARBON DIOXIDE LEVEL 28 MEQ/L (21-32); CHLORIDE LEVEL 108 MEQ/L (98-107); CHOLESTEROL LEVEL 152 MG/DL (<200); CHOLESTEROL RISK RATIO 5.428 (<5); CREATININE FOR GFR 0.71 MG/DL (0.55-1.30); FREE T4 1.05 NG/DL (0.76-1.46); GLOMERULAR FILTRATION RATE > 60.0 (>32); GLUCOSE, FASTING 48 MG/DL (70-100); HDL CHOLESTEROL 28 MG/DL (>40); LDL CHOLESTEROL 103 MG/DL (<100); NON-HDL-C 124 MG/DL; POTASSIUM SERUM 3.7 MEQ/L (3.5-5.1); SODIUM LEVEL 145 MEQ/L (136-145); TOTAL PROTEIN 6.5 GM/DL (6.4-8.2); TRIGLYCERIDES LEVEL 107 MG/DL (<150)
[2020-02-10 10:42] LABS: HEMOGLOBIN A1c 7.8 %
== END ==
PROVIDERS: ATTEND Physician Assistant
DX: I50.32 Chronic diastolic (congestive) heart failure (principal); E11.65 Type 2 diabetes mellitus with hyperglycemia; I11.0 Hypertensive heart disease with heart failure; I48.20 Chronic atrial fibrillation, unspecified; E03.9 Hypothyroidism, unspecified

== ENCOUNTER → 2020-03-05 | Outpatient (REF) | payer MEDICARE, OTHER, BC ==
[~2020-03-05] MED LIST changes: +ASPI-546 PO; -ASPI1TAB15 PO; -TRAN1TAB48 PO; +TRAN1TAB55 PO
[2020-03-05 10:33] LABS: HEMATOCRIT 40.5 % (36.0-47.0); HEMOGLOBIN 12.8 g/dl (12.0-15.5); MEAN CORPUSCULAR HEMOGLOBIN 30.8 pg (27.0-33.0); MEAN CORPUSCULAR HGB CONC 31.6 g/dl (32.0-36.5); MEAN CORPUSCULAR VOLUME 97.4 fl (80.0-96.0); PLATELET COUNT, AUTOMATED 287 10^3/uL (150-450); RED BLOOD COUNT 4.16 10^6/uL (4.00-5.40); WHITE BLOOD COUNT 8.6 10^3/uL (4.0-10.0)
[2020-03-05 10:56] LABS: ALT/SGPT 19 U/L (12-78); BILIRUBIN,TOTAL 0.5 MG/DL (0.2-1.0); BLOOD UREA NITROGEN 14 MG/DL (7-18); CALCIUM LEVEL 8.7 MG/DL (8.8-10.2); CARBON DIOXIDE LEVEL 27 MEQ/L (21-32); CHLORIDE LEVEL 108 MEQ/L (98-107); CHOLESTEROL LEVEL 156 MG/DL (<200); CHOLESTEROL RISK RATIO 5.032 (<5); FREE T4 1.24 NG/DL (0.76-1.46); GLOMERULAR FILTRATION RATE > 60.0 (>32); GLUCOSE, FASTING 62 MG/DL (70-100); HDL CHOLESTEROL 31 MG/DL (>40); LDL CHOLESTEROL 104 MG/DL (<100); NON-HDL-C 125 MG/DL; POTASSIUM SERUM 3.6 MEQ/L (3.5-5.1); SODIUM LEVEL 144 MEQ/L (136-145); TOTAL PROTEIN 6.6 GM/DL (6.4-8.2); TRIGLYCERIDES LEVEL 104 MG/DL (<150)
[2020-03-05 10:57] LABS: HEMOGLOBIN A1c 7.8 %
== END ==
PROVIDERS: ATTEND Physician Assistant
DX: I48.91 Unspecified atrial fibrillation (principal); E03.9 Hypothyroidism, unspecified; I50.32 Chronic diastolic (congestive) heart failure; I11.0 Hypertensive heart disease with heart failure; E11.65 Type 2 diabetes mellitus with hyperglycemia